=== PATIENT | male | born 1975 | race Caucasian/White ===

== ENCOUNTER 2020-09-15 17:55 | Inpatient (IN) ==
[2020-09-15] MEDS ORDERED: SODIUM CHLORIDE 0.9% 1000ML 1,000 ML IV ONE (18:19)
[2020-09-15] MEDS ORDERED: PANTOPRAZOLE BOLUS/DRIP 1 EA IV STA (18:19)
[2020-09-15] MEDS ORDERED: PANTOprazole 80 MG in DEXTROSE 5% 100 ML IV ONE (18:19)
[2020-09-15 19:17] LABS: Basophils # (auto) 0.02 K/uL (0-0.2); Basophils % (auto) 0.2 %; Eosinophils # (auto) 0.05 K/uL (0-0.5); Eosinophils % (auto) 0.4 %; Hematocrit (blood only) 31.3 % (42-52); Immature Granulocytes # (auto) 0.05 K/uL (0.00-0.02); Immature Granulocytes % (auto) 0.4 %; Lymphocytes # (auto) 1.86 K/uL (1.2-3.4); Lymphocytes % (auto) 15.1 %; Mean Corpuscular Hemoglobin 29.7 pg (25-34); Mean Corpuscular Hgb Conc 35.1 g/dL (32-36); Mean Corpuscular Volume 84.6 fL (80-100); Mean Platelet Volume 9.7 fL (7.4-10.4); Monocytes # (auto) 0.77 K/uL (0.11-0.59); Monocytes % (auto) 6.2 %; Neutrophils # (auto) 9.59 K/uL (1.4-6.5); Neutrophils % (auto) 77.7 %; Platelet Count 268 K/uL (130-400); RDW Coefficient of Variation 13.4 % (11.5-14.5); RDW Standard Deviation 40.4 fL (36.4-46.3); White Blood Count 12.34 K/uL (4.8-10.8)
[2020-09-15] MEDS: PANTOprazole 40 MG in DEXTROSE 5% 100 ML IV SCH (19:24)
[2020-09-15 19:25] LABS: Influenza A virus by PCR Negative (Neg); Influenza B virus by PCR Negative (Neg); RSV by PCR Negative (Neg); SARS CoV2 RNA(COVID-19) InHosp NEGATIVE (Negative)
[2020-09-15 19:27] LABS: INR 1.1 (0.9-1.1); Partial Thromboplastin Ratio 0.8; Partial Thromboplastin Time 21.4 Seconds (21.0-31.0); Prothrombin Time 11.2 Seconds (9.0-12.0)
--- NOTE | 2020-09-15 19:34 | XRay Report ---
XR abdomen 2V w PA chest HISTORY: 45 years-old Male gib acute GI bleed. Acute shortness of breath COMPARISON: Chest radiographs 03/17/2012 TECHNIQUE: AP view of the chest with erect and supine views of the abdomen FINDINGS: Suggested emphysema with chronic interstitial coarsening. Cardiomediastinal and hilar silhouettes are within normal limits. No pneumothorax, pleural effusion or overt pulmonary edema. Surgical clips pro ject over the right lung base. No pneumatosis or pneumoperitoneum. Moderate fecal retention. Nonobstructive bowel gas pattern. No ur olith identified. IMPRESSION: 1. Emphysema with chronic interstitial coarsening. 2. Moderate fecal retention. 3. Nonobstructive bowel gas pattern. ACT 112: Negative or not required by law. The above report was generated using voice recognition software. It may contain grammatical, syntax o r spelling errors. Electronically signed by: Tad Hernandez M.D. 09/15/2020 7:32 PM
[2020-09-15 19:40] LABS: Alanine Aminotransferase 33 U/L (12-78); Albumin Level 3.5 gm/dl (3.4-5.0); BUN Creatinine Ratio 53.2 (10-20); Bilirubin Direct < 0.1 mg/dl (0-0.2); Blood Urea Nitrogen 44 mg/dl (7-18); Calcium 8.2 mg/dl (8.5-10.1); Carbon Dioxide 31 mmol/L (21-32); Chloride 105 mmol/L (98-107); Est GFR (African American) 122.9; Glucose 161 mg/dl (70-99); Lipase 78 U/L (73-393); Potassium 4.1 mmol/L (3.5-5.1); Sodium 140 mmol/L (136-145)
[2020-09-15 19:52] LABS: Alkaline Phosphatase 60 U/L (45-117); Aspartate Aminotransferase 12 U/L (15-37); Bilirubin,Total 0.3 mg/dl (0.2-1); Total Protein 6.2 gm/dl (6.4-8.2)
[2020-09-15] MEDS ORDERED: OPTIRAY 350 500ml IV ONE (20:24)
[2020-09-15] MEDS ORDERED: levoFLOXacin/D5W 750 MG/150 ML BAG IV STA (20:53)
[2020-09-15] MEDS ORDERED: metroNIDAZOLE 500 MG/100 ML BAG IV STA (20:53)
--- NOTE | 2020-09-15 23:48 | Emergency Department Note ---
History of Present Illness General Chief complaint: GI Bleed Stated complaint: GI BLEED, VOMITING Time Seen by Provider: 09/15/20 18:12 History of Present Illness Provider Complaint: + gross hematemesis; no melena, no blood streaked stool and no gross hematochezia Onset (ago): 2 day(s) Maximum Pain Intensity: 3 Context: no history of GI bleed, no alcohol abuse, no known esophageal varices, no foreign travel, no frequent NSAID use and no alcohol ingestion(in addition to abuse) Associated symptoms: + nausea, + vomiting and + epistaxis; no fever, no chills, no headaches, no loss of appetite, no easy bruising and no shortness of breath Home Medications Medication Instructions Recorded Confirmed Type albuterol sulfate 2 puff INHALATION Q4H PRN 09/15/20 09/15/20 History levothyroxine 50 mcg PO DAILYBB 09/15/20 09/15/20 History lisinopril-hydrochlorothiazide 1 tab PO DAILY 09/15/20 09/15/20 History naproxen 500 mg PO BID PRN 09/15/20 09/15/20 History Allergies Allergy/AdvReac Type Severity Reaction Status Date / Time cephalexin Allergy Unknown CAN'T Verified 09/15/20 19:47 REMEMBER Past Med/Surg History Medical History (Updated 09/16/20 @ 00:04 by Home Fuller) Asthma No pertinent family history Surgical History (Updated 09/15/20 @ 23:55 by Home Fuller) H/O tracheostomy Social History Smoking Status: Never smoker current occupational status: employed Feels Safe at Home: Yes Review of Systems A total of 10 systems reviewed and were otherwise negative Physical Exam Vital Signs: Vital Signs - 24 hr 09/15/20 18:00 09/15/20 18:03 09/15/20 18:17 Temperature 36.8 C Temperature Source Oral Pulse Rate 109 H 120 H 111 H Pulse Rate [Right Finger] Pulse Rhythm Regular Pulse Rhythm [Righ t Finger] Pulse Strength [Ri ght Finger] Respiratory Rate 21 22 35 H Respiratory Effort / Characteristics Spontaneous Respiratory Depth Respiratory Patter n Regular Blood Pressure 114/76 114/76 Blood Pressure [Le ft Arm] Blood Pressure Dali n 88 88 Blood Pressure Dali n [Left Arm] Pulse Oximetry 89 L Oxygen Delivery Me thod Room Air Oxygen Flow Rate Sepsis Recent Feve r Within 48 Hours No Sepsis New/Unexpla ined Change in Men puneet Status No Sepsis Action Take n by Nursing No Action Required 09/15/20 18:30 09/15/20 18:31 09/15/20 18:35 Temperature Temperature Source Pulse Rate 120 H 120 H Pulse Rate [Right Finger] Pulse Rhythm Pulse Rhythm [Righ t Finger] Pulse Strength [Ri ght Finger] Respiratory Rate 22 24 Respiratory Effort / Characteristics Respiratory Depth Respiratory Patter n Blood Pressure 131/105 H Blood Pressure [Le ft Arm] Blood Pressure Dali n 113 Blood Pressure Dali n [Left Arm] Pulse Oximetry 93 Oxygen Delivery Me thod Nasal Cannula Oxygen Flow Rate 3 Sepsis Recent Feve r Within 48 Hours Sepsis New/Unexpla ined Change in Men puneet Status Sepsis Action Take n by Nursing 09/15/20 18:45 09/15/20 19:00 09/15/20 19:15 Temperature Temperature Source Pulse Rate 114 H 128 H 125 H Pulse Rate [Right Finger] Pulse Rhythm Pulse Rhythm [Righ t Finger] Pulse Strength [Ri ght Finger] Respiratory Rate 24 21 31 H Respiratory Effort / Characteristics Respiratory Depth Respiratory Patter n Blood Pressure Blood Pressure [Le ft Arm] Blood Pressure Dali n Blood Pressure Dali n [Left Arm] Pulse Oximetry Oxygen Delivery Me thod Oxygen Flow Rate Sepsis Recent Feve r Within 48 Hours Sepsis New/Unexpla ined Change in Men puneet Status Sepsis Action Take n by Nursing 09/15/20 19:30 09/15/20 19:45 09/15/20 20:00 Temperature Temperature Source Pulse Rate 119 H 110 H 114 H Pulse Rate [Right Finger] Pulse Rhythm Pulse Rhythm [Righ t Finger] Pulse Strength [Ri ght Finger] Respiratory Rate 23 23 24 Respiratory Effort / Characteristics Respiratory Depth Respiratory Patter n Blood Pressure Blood Pressure [Le ft Arm] Blood Pressure Dali n Blood Pressure Dali n [Left Arm] Pulse Oximetry Oxygen Delivery Me thod Oxygen Flow Rate Sepsis Recent Feve r Within 48 Hours Sepsis New/Unexpla ined Change in Men puneet Status Sepsis Action Take n by Nursing 09/15/20 20:35 09/15/20 20:45 09/15/20 21:00 Temperature Temperature Source Pulse Rate 117 H 114 H 121 H Pulse Rate [Right Finger] Pulse Rhythm Pulse Rhythm [Righ t Finger] Pulse Strength [Ri ght Finger] Respiratory Rate 27 H 32 H 22 Respiratory Effort / Characteristics Respiratory Depth Respiratory Patter n Blood Pressure Blood Pressure [Le ft Arm] Blood Pressure Dali n Blood Pressure Dali n [Left Arm] Pulse Oximetry Oxygen Delivery Me thod Oxygen Flow Rate Sepsis Recent Feve r Within 48 Hours Sepsis New/Unexpla ined Change in Men puneet Status Sepsis Action Take n by Nursing 09/15/20 21:15 09/15/20 22:26 Temperature Temperature Source Pulse Rate 127 H Pulse Rate [Right Finger] 129 H Pulse Rhythm Pulse Rhythm [Righ t Finger] Regular Pulse Strength [Ri ght Finger] Normal Respiratory Rate 16 24 Respiratory Effort / Characteristics Respiratory Depth Normal Respiratory Patter n Blood Pressure Blood Pressure [Le ft Arm] 105/78 Blood Pressure Dali n Blood Pressure Dali n [Left Arm] 87 Pulse Oximetry 96 Oxygen Delivery Me thod Room Air Oxygen Flow Rate Sepsis Recent Feve r Within 48 Hours Sepsis New/Unexpla ined Change in Men puneet Status Sepsis Action Take n by Nursing Physical Exam: Physical Exam GENERAL: Patient's hands are covered in blood from his vomit. HENT: Exam performed. - Head: Normocephalic and atraumatic. - Right Ear: External ear normal. No mastoid tenderness. - Left Ear: External ear normal. No mastoid tenderness. - Mouth/Throat: The oropharynx is clear and moist. No trismus in the jaw. No dental abscesses or uvula swelling. No oropharyngeal exudate or tonsillar abscesses. EYES: Conjunctivae and EOM are normal. Pupils are equal, round, and reactive to light. Right eye exhibits no discharge. Left eye exhibits no discharge. No scle ral icterus. NECK: Normal range of motion. Neck supple. No JVD present. No spinous process tenderness present. No carotid bruit present. No rigidity. No tracheal deviation and normal range of motion present. No Brudzinski's sign and no Kernig's sign noted. CV: Tachycardic rate, regular rhythm, normal heart sounds and intact distal pulses. There is no peripheral edema. Palpable radial pulses bue. PULM/CHEST: Rhonchi bilaterally ABD: The abdomen is soft. Bowel sounds are normal. He has no distension. No mass is present. There is no tenderness. There is no rebound, no guarding, no Carolina's sign and no tenderness at McBurney's point. Rovsig negative. MUSC/SKEL: Normal range of motion. There is no peripheral edema, tenderness or deformity. LYMPH: No cervical adenopathy. NEURO: He is alert and oriented to person, place, and time. He has normal strength. No cranial nerve deficit or sensory deficit. Coordination and gait normal. GCS eye subscore is 4. GCS verbal subscore is 5. GCS motor subscore is 6. Cerebellar tests wnl. SKIN: Skin is warm and dry. He is not diaphoretic. PSYCH: He has a normal mood and affect. Behavior is normal. Judgment and thought content normal. Course Course 1811: The patient was evaluated in room C8. A complete history and physical exam was performed Cardiac monitoring: An order was placed for continuous cardiac monitoring. The monitor shows a rate of 120 with sinus tachycardia rhythm Patient was found to be hypoxic on room air. Patient was placed on supplemental oxygen via nasal cannula which improved his oxygen saturation. Patient started on Protonix bolus and drip for GI bleed. 2054: Vital signs improved. Patient has had no episodes of vomiting since receiving Zofran. Patient's labs show leukocytosis of 12.34. Imaging does show possible aspiration pneumonia. Given his tachycardia hypoxia and mild leukocytosis we will start the patient on empiric antibiotics for aspiration pneumonia Levaquin and Flagyl. Patient is continued on Protonix drip. Hemoglobin stable at 11 at this point no need for transfusion. [facility] Administered Medications Pantoprazole Sodium 40 mg/ (Dextrose) 100 mls @ 20 mls/hr IV Q5H EFRAÍN Stop: 10/15/20 18:33 Last Admin: 09/15/20 19:24 Dose: 8 mg/hr, 20 mls/hr Documented by: [id number] Discontinued Medications Pantoprazole Sodium 80 mg/ (Dextrose) 120 mls @ 400 mls/hr IV NOW ONE Stop: 09/15/20 18:36 Last Infusion: 09/15/20 19:41 Dose: 0 mls/hr Documented by: [id number] Admin: 09/15/20 19:24 Dose: 400 mls/hr Documented by: [id number] Sodium Chloride (Nss 1000ml) 1,000 mls @ 999 mls/hr IV .Q1H1M ONE Stop: 09/15/20 19:19 Last Infusion: 09/15/20 20:37 Dose: 0 mls/hr Documented by: [id number] Admin: 09/15/20 19:25 Dose: 999 mls/hr Documented by: [id number] Metronidazole (Flagyl) 500 mg in 100 mls @ 100 mls/hr IV NOW STA Stop: 09/15/20 21:52 Last Admin: 09/15/20 22:28 Dose: 100 mls/hr Documented by: [id number] Levofloxacin/Dextrose (Levaquin/D5w) 750 mg in 150 mls @ 100 mls/hr IV NOW STA Stop: 09/15/20 22:22 Last Infusion: 09/15/20 23:22 Dose: 0 mls/hr Documented by: [id number] Admin: 09/15/20 21:19 Dose: 100 mls/hr Documented by: [id number] Ioversol (Optiray 350 500ml) 120 ml IV ONCE ONE Stop: 09/15/20 20:25 Last Admin: 09/15/20 20:24 Dose: 120 ml Documented by: [id number] Medical Decision Making Laboratory Data Result diagrams: 09/15/20 18:56 09/15/20 18:56 Lab Results 09/15/20 09/15/20 09/15/20 Range/Units 18:35 18:35 18:56 WBC (4.8-10.8) K/uL RBC (4.7-6.1) M/uL Hgb (14.0-18.0) g/dL Hct (42-52) % MCV (80-100) fL MCH (25-34) pg MCHC (32-36) g/dL RDW Std Deviation (36.4-46.3) fL RDW Coeff of Yuan (11.5-14.5) % Plt Count (130-400) K/uL MPV (7.4-10.4) fL Immature Gran % (Auto) % Neut % (Auto) % Lymph % (Auto) % [place] % (Auto) % Eos % (Auto) % Baso % (Auto) % Neut # (Auto) (1.4-6.5) K/uL Lymph # (Auto) (1.2-3.4) K/uL [place] # (Auto) (0.11-0.59) K/uL Eos # (Auto) (0-0.5) K/uL Baso # (Auto) (0-0.2) K/uL Immature Gran # (Auto) (0.00-0.02) K/uL PT (9.0-12.0) Seconds INR (0.9-1.1) APTT (21.0-31.0) Seconds PTT Ratio Sodium (136-145) mmol/L Potassium (3.5-5.1) mmol/L Chloride (98-107) mmol/L Carbon Dioxide (21-32) mmol/L Anion Gap (3-11) BUN (7-18) mg/dl Creatinine (0.6-1.4) mg/dl Est Cr Clr Drug Dosing Est GFR ( Amer) Est GFR (Non-Af Amer) BUN/Creatinine Ratio (10-20) Glucose (70-99) mg/dl Calcium (8.5-10.1) mg/dl Magnesium (1.8-2.4) mg/dl Total Bilirubin (0.2-1) mg/dl Direct Bilirubin (0-0.2) mg/dl AST (15-37) U/L ALT (12-78) U/L Alkaline Phosphatase (45-117) U/L Total Protein (6.4-8.2) gm/dl Albumin (3.4-5.0) gm/dl Lipase (73-393) U/L COVID-19 Eval Order [facility]FluRsv at [facility] SARS-CoV-2 (PCR) NEGATIVE (Negative) Influenza Type A (PCR) Negative (Neg) Influenza Type B (PCR) Negative (Neg) RSV (RT-PCR) Negative (Neg) Blood Type O Positive Antibody Screen NEGATIVE 09/15/20 09/15/20 09/15/20 Range/Units 18:56 18:56 18:56 WBC 12.34 H (4.8-10.8) K/uL RBC 3.70 L (4.7-6.1) M/uL Hgb 11.0 L (14.0-18.0) g/dL Hct 31.3 L (42-52) % MCV 84.6 (80-100) fL MCH 29.7 (25-34) pg MCHC 35.1 (32-36) g/dL RDW Std Deviation 40.4 (36.4-46.3) fL RDW Coeff of Yuan 13.4 (11.5-14.5) % Plt Count 268 (130-400) K/uL MPV 9.7 (7.4-10.4) fL Immature Gran % (Auto) 0.4 % Neut % (Auto) 77.7 % Lymph % (Auto) 15.1 % [place] % (Auto) 6.2 % Eos % (Auto) 0.4 % Baso % (Auto) 0.2 % Neut # (Auto) 9.59 H (1.4-6.5) K/uL Lymph # (Auto) 1.86 (1.2-3.4) K/uL [place] # (Auto) 0.77 H (0.11-0.59) K/uL Eos # (Auto) 0.05 (0-0.5) K/uL Baso # (Auto) 0.02 (0-0.2) K/uL Immature Gran # (Auto) 0.05 H (0.00-0.02) K/uL PT 11.2 (9.0-12.0) Seconds INR 1.1 (0.9-1.1) APTT 21.4 (21.0-31.0) Seconds PTT Ratio 0.8 Sodium 140 (136-145) mmol/L Potassium 4.1 (3.5-5.1) mmol/L Chloride 105 (98-107) mmol/L Carbon Dioxide 31 (21-32) mmol/L Anion Gap 4.0 (3-11) BUN 44 H (7-18) mg/dl Creatinine 0.82 (0.6-1.4) mg/dl Est Cr Clr Drug Dosing Not Reportable Est GFR ( Amer) 122.9 Est GFR (Non-Af Amer) 106.0 BUN/Creatinine Ratio 53.2 H (10-20) Glucose 161 H (70-99) mg/dl Calcium 8.2 L (8.5-10.1) mg/dl Magnesium 2.0 (1.8-2.4) mg/dl Total Bilirubin 0.3 (0.2-1) mg/dl Direct Bilirubin < 0.1 (0-0.2) mg/dl AST 12 L (15-37) U/L ALT 33 (12-78) U/L Alkaline Phosphatase 60 (45-117) U/L Total Protein 6.2 L (6.4-8.2) gm/dl Albumin 3.5 (3.4-5.0) gm/dl Lipase 78 (73-393) U/L COVID-19 Eval Order SARS-CoV-2 (PCR) (Negative) Influenza Type A (PCR) (Neg) Influenza Type B (PCR) (Neg) RSV (RT-PCR) (Neg) Blood Type Antibody Screen Imaging Data Radiologist's Impression: Chest/Abdomen X-ray 09/15/20 18:20 XR abdomen 2V w PA chest HISTORY: 45 years-old Male gib acute GI bleed. Acute shortness of breath COMPARISON: Chest radiographs 03/17/2012 TECHNIQUE: AP view of the chest with erect and supine views of the abdomen FINDINGS: Suggested emphysema with chronic interstitial coarsening. Cardiomediastinal and hilar silhouettes are within normal limits. No pneumothorax, pleural effusion or overt pulmonary edema. Surgical clips project over the right lung base. No pneumatosis or pneumoperitoneum. Moderate fecal retention. Nonobstructive bowel gas pattern. No urolith identified. IMPRESSION: 1. Emphysema with chronic interstitial coarsening. 2. Moderate fecal retention. 3. Nonobstructive bowel gas pattern. ACT 112: Negative or not required by law. The above report was generated using voice recognition software. It may contain grammatical, syntax or spelling errors. Electronically signed by: Tad Hernandez M.D. 09/15/2020 7:32 PM Preliminary Findings Only See Final Report For Complete Findings CT ABDOMEN & PELVIS With Contrast: Normal appendix. No obstruction or inflammatory changes along the GI tract. No grossly evident active GI bleed. Hepatic steatosis. The bladder, pancreas, and spleen are unremarkable. No renal or ureteral stones. Radiologist: Nigel Suggs MD Study ready at 20:38 and initial results transmitted at 20:46 Preliminary Findings Only See Final Report For Complete Findings CTA CHEST: No pulmonary embolism. Unremarkable appearance of the aorta. Heart size is normal. Marked emphysematous changes. Multifocal basilar predominant centrilobular nodularity the appearance of which is most suggestive of aspiration. Nonspecific infection considered less likely. Radiologist: Nigel Suggs MD Study ready at 20:39 and initial results transmitted at 20:48 ECG Data Indication: SOB/dyspnea Rate (beats per minute): 115 Rhythm: sinus tachycardia Findings: no RBBB, no ST depression, no ST elevation and no prolonged QT [facility] Narrative 1811: The patient was evaluated in room C8. A complete history and physical exam was performed Cardiac monitoring: An order was placed for continuous cardiac monitoring. The monitor shows a rate of 120 with sinus tachycardia rhythm Patient was found to be hypoxic on room air. Patient was placed on supplemental oxygen via nasal cannula which improved his oxygen saturation. Patient started on Protonix bolus and drip for GI bleed. 2054: Vital signs improved. Patient has had no episodes of vomiting since receiving Zofran. Patient's labs show leukocytosis of 12.34. Imaging does show possible aspiration pneumonia. Given his tachycardia hypoxia and mild tai kocytosis we will start the patient on empiric antibiotics for aspiration pneumonia Levaquin and Flagyl. Patient is continued on Protonix drip. Hemoglobin stable at 11 at this point no need for transfusion. [facility] notified Impression & Plan Hypoxia, Aspiration pneumonia, GIB (gastrointestinal bleeding) Critical Care Time Critical Care Time: Yes Total Critical Care Time: 46 I have personally spent greater than 46 minutes of critical care time in the direct management of this patient. This includes bedside care, interpretation of diagnostic studies, and testing, discussion with consultants, patient, and family members, and other required patient management activities. This 46 minutes is in excess of all separately billable procedures. Discharge Plan Visit Data Chief Complaint: GI Bleed Stated Complaint: GI BLEED, VOMITING ED Provider: Home Fuller Discharge Problem: Hypoxia, Aspiration pneumonia, GIB (gastrointestinal bleeding) Patient Disposition: Admitted As Inpatient Discharge Instructions Interventions: ED Discharge Assessment Last Done: 09/15/20 23:36 Discharge Problem: Aspiration pneumonia Qualifiers: Aspiration pneumonia type: unspecified Laterality: right Lung location: unspecified part of lung Qualified Code(s): J69.0 - Pneumonitis due to inhalation of food and vomit GIB (gastrointestinal bleeding) Qualifiers: GI bleed type/associated pathology: gastrointestinal hemorrhage with hematemesis Qualified Code(s): K92.0 - Hematemesis
[2020-09-16] MEDS ORDERED: ALBUTEROL 0.083% NEBU SOLN 3 ML VIAL NEB PRN (00:10)
[2020-09-16] MEDS ORDERED: CONSULT PHARMACY STA (00:10)
[2020-09-16] MEDS ORDERED: hydrALAZINE HCL 20 MG/ML VIAL IV PRN (00:10)
[2020-09-16] MEDS ORDERED: NITROGLYCERIN SL 0.4 MG/TAB TAB SL PRN (00:10)
[2020-09-16] MEDS ORDERED: ALBUTEROL HFA 8 GM INHALER INH PRN (00:10)
[2020-09-16] MEDS ORDERED: ONDANSETRON INJ 2 MG/ML 2 ML VIAL IV PRN ×3 (00:10→10:30)
[2020-09-16] MEDS ORDERED: HYDROmorphone INJ 0.5 MG/0.5 ML SYR IV PRN (00:10)
[2020-09-16] MEDS: PANTOprazole 40 MG in DEXTROSE 5% 100 ML IV SCH ×6 (00:11→23:42)
[2020-09-16] MEDS: SODIUM CHLORIDE 0.9% 1000ML 1,000 ML IV SCH ×2 (00:24→08:59)
[2020-09-16] MEDS ORDERED: ERTAPENEM CONSULT ACTIVE PRN (00:45)
--- NOTE | 2020-09-16 01:51 | History and Physical Report ---
DATE OF ADMISSION: 09/15/2020 CHIEF COMPLAINT: GI bleed. HISTORY OF PRESENT ILLNESS: This is a 45-year-old male with past medical history significant for hypothyroidism, congenital hypoplastic right lung, hyperlipidemia, history of hypertension, history of posttraumatic stress disorder, anxiety state, history of asthma. The patient presents with acute GI bleed. The patient vomited blood today. He thinks he might have vomited yesterday too but today morning he vomited a couple of times early in the morning back stuff thought it was his coffee. But in the evening, he had a large amount of vomiting of blood, his whole room was filled with blood and he was brought in here. After vomiting blood, he felt short of breath and cough, was 89% on room air when he came in, currently on oxygen and saturating fine, tachycardic. Currently, his hemoglobin is 11, blood pressure is okay. BUN 44, creatinine is okay. He was diagnosed with COVID on August 02, 2020. Today's COVID is negative. No fever, no chills. His chest hurts when taking a deep breath. Currently, no shortness of breath. The patient says he had back pain about a week to 2 weeks ago, he thought from heavy lifting and he started taking Naprosyn 500 mg 1 twice daily, but he states he is not taking it on a regular basis. Denies any aspirin usage. Currently having back pain and some pain in the right lower chest, more with deep breath. No headache, no blurred vision, no earache, no runny nose, has some sore throat, no coughing and vomiting. Denies any blood in stool or black stools. Normal bladder movements. ALLERGIES: No known drug allergies. PAST MEDICAL HISTORY: As mentioned above. PAST SURGICAL HISTORY: Tonsillectomy, adenoidectomy, vasectomy, surgery on femur and knee in 1990. MEDICATIONS: Currently on albuterol 2 puffs inhalation q. 4 hours p.r.n., levothyroxine 50 mcg p.o. daily, lisinopril/hydrochlorothiazide 10/12.5 mg p.o. daily, naproxen 500 mg p.o. b.i.d. FAMILY HISTORY: Significant for father has hypertension. SOCIAL HISTORY: . No smoking, no alcohol, no drug use. REVIEW OF SYSTEMS: As per HPI. Rest of review of systems is negative. PHYSICAL EXAMINATION: GENERAL: The patient is obese, not in acute distress. VITAL SIGNS: Temperature 36.8, pulse 120s, respiratory rate 24, blood pressure 105/78, oxygen 96% on room air. HEENT: Pupils equal, round, reactive to light. Oral mucosa moist. NECK: No JVD. No neck masses. CARDIOVASCULAR: S1, S2 heard. Tachycardia. No murmur, no gallop. RESPIRATORY SYSTEM: Normal AP diameter. No accessory muscle use. No wheezing, no crackles. ABDOMEN: Soft, bowel sounds present, nontender. No distention. CENTRAL NERVOUS SYSTEM: Cranial nerves II through XII grossly intact, nonfocal. EXTREMITIES: No edema, no erythema. LABORATORY DATA: WBC 12.3, hemoglobin 11, hematocrit 31.3, platelets 268. PT 11.2, INR 1.1, APTT 21.4. Sodium 140, potassium 4.1, chloride 105, bicarbonate 31, BUN 44, creatinine 0.8, serum glucose 151, calcium 8.2, magnesium 2, total bilirubin 0.3, direct bilirubin less than 0.1, AST 12, ALT 33, alkaline phosphatase 60, lipase 78. SARS-CoV-2 PCR negative. Influenza A and B PCR negative, RSV PCR negative. IMAGING: CTA of the chest with multifocal bibasilar predominant centrilobular nodularity appearance of which suggest mostly aspiration. Non specific infection considered less likely. No PE. Chest and abdominal x-ray, emphysema, moderate fecal retention. EKG: Sinus tachycardia, rate of 115. Nonspecific ST abnormalities. ASSESSMENT AND PLAN: This is a 45-year-old male who presents with acute GI bleed. 1. Acute GI bleed, hematemesis. Was taking Naprosyn for about a week now. Hemoglobin, we do not have recent labs but it was 14.8 in 2011, currently it is 11, blood consent was obtained. Hemoglobin and hematocrit q. 6 hours, Protonix drip started in the ER, which will be continued. Keep him n.p.o. Consult GI in a.m. Closely monitor in tele floor. If he starts to vomit blood again we will call the GI. 2. Possible aspiration pneumonitis. He was having pain while taking deep breaths. CTA of the chest, no PE. Shortness of breath and cough which started after vomiting blood today. . History of COVID in July and today's COVID is negative. He was empirically started on Levaquin and Flagyl, which will be continued. Closely monitor. Continue oxygenation. 3. History of asthma, currently not in exacerbation. Continue with albuterol p.r.n. 4. History of hypothyroidism, placed on IV Synthroid. 5. History of hypertension. Hold his home medications lisinopril/hydrochlorothiazide, place him on IV hydralazine p.r.n. 6. Deep venous thrombosis prophylaxis, sequential compression devices. DISPOSITION: Admit to tele floor. Expect discharge home and follow with family doctor. LOUISA
[2020-09-16] MEDS ORDERED: ERTAPENEM SODIUM 1,000 MG in SODIUM CHLORIDE 0.9% 50 ML IV SCH (02:00)
[2020-09-16 06:53] LABS: Basophils # (auto) 0.02 K/uL (0-0.2); Basophils % (auto) 0.1 %; Hematocrit (blood only) 28.8 % (42-52); Immature Granulocytes # (auto) 0.04 K/uL (0.00-0.02); Immature Granulocytes % (auto) 0.2 %; Lymphocytes # (auto) 1.57 K/uL (1.2-3.4); Lymphocytes % (auto) 9.2 %; Mean Corpuscular Hemoglobin 29.3 pg (25-34); Mean Corpuscular Hgb Conc 34.7 g/dL (32-36); Mean Corpuscular Volume 84.5 fL (80-100); Mean Platelet Volume 9.8 fL (7.4-10.4); Monocytes # (auto) 1.05 K/uL (0.11-0.59); Monocytes % (auto) 6.2 %; Neutrophils # (auto) 14.31 K/uL (1.4-6.5); Neutrophils % (auto) 84.3 %; Platelet Count 262 K/uL (130-400); RDW Coefficient of Variation 13.9 % (11.5-14.5); RDW Standard Deviation 42.8 fL (36.4-46.3); Red Blood Count 3.41 M/uL (4.7-6.1); White Blood Count 16.99 K/uL (4.8-10.8)
[2020-09-16 07:34] LABS: BUN Creatinine Ratio 32.6 (10-20); Calcium 8.3 mg/dl (8.5-10.1); Creatinine Clr Calc Pharmacy 113.6 ml/min; Est GFR (African American) 120.5; Magnesium 1.9 mg/dl (1.8-2.4); Potassium 3.9 mmol/L (3.5-5.1)
--- NOTE | 2020-09-16 07:49 | CT Scan Report ---
CT ANGIOGRAM OF THE CHEST CLINICAL HISTORY: Gastrointestinal hemorrhage. Hypoxia. Possible pulmonary embolism. COMPARISON STUDY: December 2011 TECHNIQUE: Following the IV administration of 120 mL of Optiray, CT angiogram of the thorax was perfo rmed from the thoracic inlet to the lung bases utilizing the pulmonary embolus protocol. Images are r eviewed in the axial, sagittal, and coronal planes. IV contrast was administered without complication . MIP imaging was performed. A dose lowering technique was utilized adhering to the principles of [place] LUIS. CT DOSE: 1530.04 mGy.cm FINDINGS: There is hepatic steatosis. No pathologically enlarged axillary mediastinal or hilar lymph nodes were visualized. There was no evidence of thoracic aortic dilatation. There were no pulmonary artery filling defects to indicate acute pulmonary embolism. There is pulmonary emphysema. Postsurgical changes are present at the left lung apex. There are areas of acinar nodularity within the right upper lobe and both lower lobes, consistent with a multifocal pneumonia. IMPRESSION: 1. No evidence of acute pulmonary embolism 2. Severe pulmonary emphysema 3. Bilateral pulmonary acinar nodularity consistent with a nonspecific infectious/inflammatory proces s. ACT 112: Negative or not required by law. Electronically signed by: Dany Wilkinson M.D. 09/16/2020 7:47 AM
--- NOTE | 2020-09-16 07:49 | CT Scan Report ---
CT OF THE ABDOMEN AND PELVIS WITH CONTRAST CLINICAL HISTORY: Upper GI bleed. COMPARISON STUDY: Abdominal series September 15, 2020. TECHNIQUE: Following IV administration of 120 mL of Optiray, axial images of the abdomen and pelvis w ere obtained from the lung bases to the proximal femurs. Images were reviewed in the axial, sagittal, and coronal planes. IV contrast was administered without complication. Automated exposure control w as utilized for the study. A dose lowering technique was utilized adhering to the principles of RACQUEL Pearson. FINDINGS: Please note that the chest will be reported separately. Chest CT demonstrates severe emphys shantal with bilateral lower lobe alveolar opacities. No pneumatosis, free air or portal venous gas is pr esent. There is hepatic steatosis. The spleen, adrenal glands, kidneys and pancreas are unremarkable. There is no biliary or pancreatic ductal dilatation. There is no hydronephrosis. No peripancreatic o r pericholecystic infiltration is noted. Major vasculature is patent. There is no lymphadenopathy. Th e caliber and wall thickness of small and large bowel are normal. No extravasation of contrast into t he bowel lumen is identified on this examination. Sensitivity for detection mucosal lesions is dimini shed given CT technique. Fat-containing right inguinal hernia is noted. Bowel containing umbilical he rnia is present. IMPRESSION: 1. No acute process within the abdomen or pelvis. No contrast extravasation into the bowel lumen iden tified. 2. Hepatic steatosis. 3. Bowel containing umbilical hernia. Fat-containing right inguinal hernia. ACT 112: Negative or not required by law. Electronically signed by: Tylor Fraser M.D. 09/16/2020 7:47 AM
[2020-09-16] MEDS: metroNIDAZOLE 500 MG/100 ML BAG IV SCH ×3 (08:53→22:04)
--- NOTE | 2020-09-16 08:58 | Electrocardiogram Report ---
Test Reason : Blood Pressure : / mmHG Vent. Rate : 115 BPM Atrial Rate : 115 BPM P-R Int : 152 ms QRS Dur : 076 ms QT Int : 316 ms P-R-T Axes : 074 005 086 degrees QTc Int : 437 ms Sinus tachycardia Diffuse Minor Nonspecific T wave abnormality Abnormal ECG When compared with ECG of 16-MAR-2012 22:40, Vent. rate has increased BY [address] no longer elevated in Lateral leads Nonspecific T wave abnormality now evident in multiple leads Confirmed by Roque Magallanes ([id number]) on 09/16/2020 8:58:10 AM Referred By: REFERRED SELF Confirmed By:Roque Magallanes
[2020-09-16] MEDS ORDERED: LEVOTHYROXINE SODIUM 25 MCG in SYRINGE 0 ML IV SCH (09:00)
[2020-09-16] MEDS ORDERED: DOXYCYCLINE HYCLATE 100 MG in DEXTROSE 5% 100 ML IV SCH (09:00)
[2020-09-16] MEDS ORDERED: SODIUM CHLORIDE 0.9% 1000ML 1,000 ML IV SCH (09:12)
--- NOTE | 2020-09-16 09:34 | Gastrointestinal Consultation ---
Date of Consultation September 16, 2020 Assessment & Plan (1) Upper GI bleed: Likely NSAID induced UGI bleed. Keep NPO. 1 L NS Bolus then return to 125/hr. Agree with PPI drip. EGD this afternoon in the OR by Dr. Nichole. Further recommendations to follow EGD. Present on Admission?: Yes Supervising Physician Co-Signing Physician Notes Attg add: I interviewed and examined pt, reviewed chart and labs. Pt admit with complaint of coffee ground emesis x2, h/o NSAID use. Bp stable, but tachy. BUN 44, hgb 11. Suspect PUD, plan for EGD today. History of Present Illness Reason for Consultation: GI Beed Requesting Physician: Dr. Baker Attending Physician: Rowena Baker MD History of Present Illness Mr. Andrew Miller is a 45 yr old male pt of Dr. Herndon with a hx of hypothyroidism, congenital hypoplastic right lung, hyperlipidemia, HTN, PTSD, anxiety state, asthma. He has had back pain and has been on prescription naproxen BID for approx a month and prior to that OTC Naproxen use. He presented to the ED yesterday because he was very weak. That morning, he had vomited coffee grounds twice and last evening faby red blood twice. Hb on arrival 11->10 this morning (most recent prior Hb was 14 but was in 2011), BUN 47->28. He denies any abdominal pain. He is awake, alert, oriented and able to provide a detailed history. He is on a PPI drip. He is a bit tachycardic at 110/min but denies any CP, SOB or cough, tested (-) for COVID and has not had any further vomiting since admission. Most recent BM was yesterday afternoon, brown, formed. Allergies Allergy/AdvReac Type Severity Reaction Status Date / Time cephalexin Allergy Unknown CAN'T Verified 09/15/20 19:47 REMEMBER Home Medications Medication Instructions Recorded Confirmed Type albuterol sulfate 2 puff INHALATION Q4H PRN 09/15/20 09/15/20 History levothyroxine 50 mcg PO DAILYBB 09/15/20 09/15/20 History lisinopril-hydrochlorothiazide 1 tab PO DAILY 09/15/20 09/15/20 History naproxen 500 mg PO BID PRN 09/15/20 09/15/20 History Patient History Medical History Asthma No pertinent family history Surgical History H/O tracheostomy Social History Smoking Status: Never smoker Hx Alcohol Use: No Hx Substance Use: No Preferred Language: [place] Communication Ability: Effective 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 Beliefs That Will Affect Care: None Current Living Situation: Family current occupational status: employed Other Information That Helps Us Care for You: No Feels Safe at Home: Yes Safety Concerns: Feels Safe At This Time Assistive Devices: None Review of Systems Review of Systems: ROS: Gen: ++ weakness, No fevers, weight loss Eyes: No eye redness, or pain, no recent vision changes Resp: No SOB, no cough Cardio: No palpitations/irregular beats, no chest pain GI: See HPI, otherwise (-) : Denies pain on urination Skin: No jaundice, itching or new rashes Physical Exam Constitutional: well developed, well nourished, + obese (mild) and healthy appearing; no acute distress Eyes: PERRL, conjunctivae normal, anicteric sclerae (strabismus) ENMT: external ear and nose normal, oropharynx normal Neck: trachea midline, no thyromegaly Respiratory: normal respiratory effort, lungs clear to auscultation (Right lung sounds quiet at the base;no adentitious sounds) Cardiovascular: 100 - 110/min, regular, no murmurs Gastrointestinal (Abdomen): normal bowel sounds, soft, nontender, no hepatosplenomegaly Musculoskeletal: no cyanosis or clubbing, extremities motor strength 5/5 Skin: no rashes, warm and dry Neurologic: PERRL, EOMI, accommodation nl, no face palsy, no dysarthria Psychiatric: A+Ox3, euthymic affect Lymphatic: no cervical or axillary lymphadenopathy Results & Data ([facility]) Vital Signs (Past 12 Hours) Vital Signs Temp Pulse Pulse Resp BP Pulse Ox 09/16/20 05:45 36.9 C 117 H 20 151/88 H 96 09/16/20 00:06 36.8 C 122 H 19 113/75 94 09/15/20 22:26 129 H 24 105/78 96 09/15/20 21:15 127 H 16 Laboratory Results WBC 16, Hb 19, Hct 28, Plats 262, Na 141, K 3.9, Cl 106, CO2 29, BUN 28, Cr 0.86. Diagnostic Findings CTAP: 1. No acute process within the abdomen or pelvis. No contrast extravasation into the bowel lumen identified. 2. Hepatic steatosis. 3. Bowel containing umbilical hernia. Fat-containing right inguinal hernia. CTA Chest: 1. No evidence of acute pulmonary embolism 2. Severe pulmonary emphysema 3. Bilateral pulmonary acinar nodularity consistent with a nonspecific infectious/inflammatory process.
[2020-09-16] MEDS ORDERED: fentaNYL citrate 100 MCG/2 ML VIAL IV PRN ×2 (10:20→10:30)
[2020-09-16] MEDS ORDERED: ePHEDrine sulfate 50 MG/ML AMP IV PRN ×2 (10:20→10:30)
[2020-09-16] MEDS ORDERED: ATROPINE SULFATE 0.1 MG/ML 10ML SYR IV PRN ×2 (10:20→10:30)
[2020-09-16] MEDS ORDERED: SODIUM CHLORIDE 0.9% 1000ML 500 ML IV ONE (10:27)
--- NOTE | 2020-09-16 10:32 | Anesthesiology Consultation ---
Date of Service September 16, 2020 Assessment & Plan (1) Encounter for pre-operative examination: Chart Review Chart Review: Acceptable Risk for Surgery and Patient NOT seen in Pre Admission Testing Consults Requested none ASA ASA3 Proposed Anesthesia Anesthesia Type: General Risk / Benefits Reviewed With: PT / POA / Parent / Guardian, Accepts Plan and Informed Consent Obtained History Surgery Operation Date: 09/16/20 07:00 Proposed Procedures p Esophagogastroduodenoscopy Cj Nichole MD Operation Date: 09/16/20 16:30 Proposed Procedures p Esophagogastroduodenoscopy Dr Marquez - Lakeshia Nichole MD Height/Weight Height: 5 ft 6 in Weight: 91.3 kg Allergies Allergy/AdvReac Type Severity Reaction Status Date / Time cephalexin Allergy Unknown CAN'T Verified 09/15/20 19:47 REMEMBER Medications Home Medications Medication Instructions Recorded Confirmed Last Taken albuterol sulfate 2 puff INHALATION Q4H PRN 09/15/20 09/15/20 Unknown levothyroxine 50 mcg PO DAILYBB 09/15/20 09/15/20 09/15/20 lisinopril-hydrochlorothiazide 1 tab PO DAILY 09/15/20 09/15/20 09/15/20 naproxen 500 mg PO BID PRN 09/15/20 09/15/20 Unknown Active Medications Generic Name Dose Route Start Last Admin Trade Name Freq PRN Reason Stop Dose Admin Pantoprazole Sodium 40 mg/ 100 mls @ 20 mls/hr 09/15/20 18:34 09/16/20 08:54 Dextrose IV 10/15/20 18:33 8 mg/hr Q5H EFRAÍN 20 mls/hr Administration 8 MG/HR Sodium Chloride 1,000 mls @ 125 mls/hr 09/16/20 00:10 09/16/20 08:59 Nss 1000ml IV 10/16/20 00:09 125 mls/hr .Q8H EFRAÍN Administration Levothyroxine Sodium 25 mcg/ 1.25 mls @ 2 mls/min 09/16/20 09:00 09/16/20 0 8:53 Syringe IV 10/16/20 08:59 2 mls/min Q3D@0900 EFRAÍN Administration Protocol Metronidazole 500 mg in 100 mls @ 100 mls/hr 09/16/20 07:00 09/16/20 08:53 Flagyl IV 09/23/20 06:59 100 mls/hr Q8H EFRAÍN Administration NPO Date Last Intake of Fluids: 09/15/20 Time Last Intake of Fluids: 13:00 Last Intake of Fluids Comment: ice chips Date Last Intake of Solids: 09/15/20 Time Last Intake of Solids: 13:00 Past Medical History Medical History Asthma No pertinent family history Exercise / Class Metabolic Activity II 4-5 Yardwork/Stairs/Walk up hill Past Surgical History Surgical History H/O tracheostomy Past Anesthesia History No Hx of Anesthesia Complications and No Family Hx of Anesthesia Complications History of PONV No Hx of PONV and No Hx of Motion Sickness Social History Smoking Status: Never smoker Hx Alcohol Use: No Hx Substance Use: No Physical Exam Vital Signs Last Vital Signs Temp 37 C 09/16/20 09:48 Pulse 114 H 09/16/20 09:48 Resp 20 09/16/20 09:48 BP 118/73 09/16/20 09:48 Pulse Ox 91 09/16/20 09:48 ENMT Mouth: no dentition abnormality Thyromental Distance: > or= 3.5 Finger Breadths Mallampati Class: II Neck normal visual inspection Respiratory normal respiratory effort Auscultation: lungs clear to auscultation bilaterally Cardiovascular Rate/Rhythm: regular rate and regular rhythm Psychiatric Orientation: alert Testing Laboratory Results 09/16/20 05:52 09/16/20 05:52 PT 11.2 Seconds (9.0-12.0) 09/15/20 18:56 INR 1.1 (0.9-1.1) 09/15/20 18:56 APTT 21.4 Seconds (21.0-31.0) 09/15/20 18:56 Blood Type O Positive 09/15/20 18:56 Antibody Screen NEGATIVE 09/15/20 18:56
[2020-09-16] MEDS ORDERED: LIDOCAINE HCL 2% 2 ML VIAL/AMP(20MG/ML) INFIL ONE (11:06)
[2020-09-16] MEDS ORDERED: ONDANSETRON INJ 2 MG/ML 2 ML VIAL ONE (11:06)
[2020-09-16] MEDS ORDERED: fentaNYL citrate 100 MCG/2 ML VIAL ONE (11:06)
[2020-09-16] MEDS ORDERED: PROPOFOL IV EMULSION 10 MG/ML 20 ML VIAL IV ONE (11:06)
[2020-09-16] MEDS ORDERED: DEXAMETHASONE SOD INJ 4 MG/ML VIAL ONE (11:06)
[2020-09-16] MEDS ORDERED: MIDAZOLAM HCL 1 MG/ML 2ML VIAL ONE (11:07)
--- NOTE | 2020-09-16 11:17 | History & Physical Bridge Note ---
Date of Service September 16, 2020 History & Physical Bridge Note I have examined the patient, reviewed the History & Physical and in the interval since the performance of the History & Physical I have noted the following changes of clinical significance: no changes noted
--- NOTE | 2020-09-16 11:54 | Procedure Note ---
Procedure Note Date of Service September 16, 2020 EGD shows esophageal ulcer, likely pill induced, with non bleeding visible vessel. Injected with 2 cc's of 1:100,000 epinephrine and cauterized with 7 azeri gold probe at setting of 20 klein held with moderate pressure for 4 seconds. Hemostasis was adeqate. PPI gtt x 2 days, carafate suspension TID, twice daily hgb, clears today. Repeat EGD if develops recurrent hematemesis or hgb falls by > more than 2. Coding
--- NOTE | 2020-09-16 12:11 | GI REPORT ---
Patient Name: Andrew Miller Procedure Date: 09/16/2020 11:07 AM Date of : 1975 Admit Type: Inpatient Age: 45 Gender: Male Attending MD: Lakeshia Nichole MD Procedure: Upper GI endoscopy Providers: Lakeshia Nichole MD Referring MD: Rowena Baker Indications: Hematemesis Medicines: See the Anesthesia note for documentation of the administered medications Complications: No immediate complications. Estimated Blood Loss: Estimated blood loss: none. Procedure: Pre-Anesthesia Assessment: - ASA Grade Assessment: III - A patient with severe systemic disease. After obtaining informed consent, the endoscope was passed under direct vision. Throughout the procedure, the patient's blood pressure, pulse, and oxygen saturations were monitored continuously. The Endoscope was introduced through the mouth, and advanced to the second part of duodenum. The upper GI endoscopy was accomplished without difficulty. The patient tolerated the procedure well. Findings: There were two erosions > 5 mm at the GE junction. There was a large ulcer in the esophagus at the GE junction, likely pill induced. The ulcer appeared benign, with smooth edges and no mass effect. There was a slightly protuberant non bleeding visible vessel at the ulcer base. The ulcer base was injected with 2 cc's of 1:100,000 epinephrine. The visible vessel was cauterized using a 7 Fr Goldprobe at 20 klein with moderate pressure held for 4 seconds. Hemostasis appeared adequate. The stomach and duodenum was normal. Impression: NSAID related esophageal ulcer with non bleeding visible vessel s/p cautery and injection with adequate hemostasis. Distal esophagitis. Recommendation: - Discharge patient to ICU. Follow Hgb twice daily for 2 days and xfuse for hgb <7. PPI gtt for 48 hours. Carafate suspension TID. Clears today, with plan to advance to full liquids tomorrow if no evidence of recurrent GIB. If pt with recurrent hematemesis or hgb drop > 2, will plan repeat EGD. Steve Ordonez MD 09/16/2020 12:11:23 PM This report has been signed electronically. Note Initiated On: 09/16/2020 11:07 AM Number of Addenda: 0 I attest to the content of the Intraoperative Record and orders documented therein, exceptions below {[id number]}
[2020-09-16] MEDS ORDERED: ALBUTEROL HFA INHALER 8.5 GM ONE (12:28)
[2020-09-16] MEDS ORDERED: ALBUTEROL 0.083% NEBU SOLN 3 ML VIAL NEB STA (13:13)
[2020-09-16] MEDS: SUCRALFATE 1 GM/10 ML UDC PO SCH ×3 (13:37→19:43)
--- NOTE | 2020-09-16 13:54 | Anesthesiology Progress Note ---
Date of Service September 16, 2020 Anesthesia Post Procedure Vital Signs Vital Signs: Temp Pulse Pulse Pulse Pulse Resp BP 09/16/20 13:48 36.7 C 09/16/20 13:45 113 H 19 09/16/20 13:43 111 H 19 126/62 09/16/20 13:30 113 H 23 09/16/20 13:28 96/62 L 09/16/20 13:27 09/16/20 13:20 36.8 C 110 H 20 09/16/20 13:10 111 H 20 09/16/20 13:00 114 H 20 09/16/20 12:50 115 H 19 09/16/20 12:40 116 H 22 09/16/20 12:30 107 H 18 09/16/20 12:20 36.2 C L 116 H 20 09/16/20 09:48 37 C 114 H 20 09/16/20 09:40 114 H 26 H 118/73 09/16/20 09:30 130 H 23 09/16/20 09:23 123 H 19 09/16/20 09:00 116 H 19 09/16/20 08:45 105 H 26 H 09/16/20 08:30 111 H 19 09/16/20 08:15 108 H 26 H 09/16/20 08:00 36.9 C 100 H 114 H 27 H 09/16/20 07:57 100 H 27 H /09/16/20 07:45 116 H 20 09/16/20 07:39 116 H 26 H 107/71 09/16/20 07:30 107 H 27 H 09/16/20 07:15 110 H 27 H 09/16/20 07:00 112 H 27 H 09/16/20 06:45 117 H 24 09/16/20 06:30 115 H 30 H 09/16/20 06:15 122 H 20 09/16/20 06:00 116 H 26 H 09/16/20 05:56 112 H 23 151/88 H 09/16/20 05:45 36.9 C 114 H 117 H 20 09/16/20 05:30 112 H 24 09/16/20 05:15 115 H 23 09/16/20 05:00 116 H 25 H 09/16/20 04:45 124 H 20 09/16/20 04:30 120 H 28 H 09/16/20 04:15 122 H 24 09/16/20 04:00 125 H 26 H 09/16/20 03:45 123 H 29 H 09/16/20 03:30 119 H 31 H 09/16/20 03:22 117 H 22 09/16/20 02:45 123 H 30 H 09/16/20 02:30 122 H 30 H 09/16/20 02:15 123 H 20 09/16/20 02:00 131 H 21 09/16/20 01:45 120 H 18 09/16/20 01:30 120 H 27 H 09/16/20 01:15 119 H 29 H 09/16/20 01:00 115 H 21 09/16/20 00:45 119 H 16 09/16/20 00:30 121 H 20 09/16/20 00:15 125 H 28 H 09/16/20 00:06 36.8 C 122 H 19 09/16/20 00:00 123 H 22 113/75 09/15/20 23:59 124 H 27 H 09/15/20 22:26 129 H 129 H 30 H 105/78 09/15/20 22:25 128 H 23 09/15/20 21:15 127 H 16 09/15/20 21:00 121 H 22 09/15/20 20:45 114 H 32 H 09/15/20 20:35 117 H 27 H 09/15/20 20:00 114 H 24 09/15/20 19:45 110 H 23 09/15/20 19:30 119 H 23 09/15/20 19:15 125 H 31 H 09/15/20 19:00 128 H 21 09/15/20 18:45 114 H 24 09/15/20 18:35 09/15/20 18:31 120 H 24 09/15/20 18:30 120 H 22 131/105 H 09/15/20 18:17 111 H 35 H 09/15/20 18:03 36.8 C 120 H 22 114/76 09/15/20 18:00 109 H 21 114/76 BP Pulse Ox Pulse Ox 09/16/20 13:48 09/16/20 13:45 90 09/16/20 13:43 91 09/16/20 13:30 92 09/16/20 13:28 91 09/16/20 13:27 91 09/16/20 13:20 111/68 93 09/16/20 13:10 108/71 92 09/16/20 13:00 112/73 92 09/16/20 12:50 112/67 95 09/16/20 12:40 123/70 92 09/16/20 12:30 129/75 92 09/16/20 12:20 148/79 H 93 09/16/20 09:48 118/73 91 09/16/20 09:40 09/16/20 09:30 09/16/20 09:23 09/16/20 09:00 09/16/20 08:45 09/16/20 08:30 09/16/20 08:15 09/16/20 08:00 107/71 96 96 09/16/20 07:57 09/16/20 07:45 09/16/20 07:39 09/16/20 07:30 09/16/20 07:15 09/16/20 07:00 09/16/20 06:45 09/16/20 06:30 09/16/20 06:15 95 09/16/20 06:00 95 09/16/20 05:56 95 09/16/20 05:45 151/88 H 96 09/16/20 05:30 09/16/20 05:15 09/16/20 05:00 09/16/20 04:45 09/16/20 04:30 09/16/20 04:15 09/16/20 04:00 09/16/20 03:45 09/16/20 03:30 09/16/20 03:22 09/16/20 02:45 09/16/20 02:30 09/16/20 02:15 09/16/20 02:00 09/16/20 01:45 09/16/20 01:30 09/16/20 01:15 09/16/20 01:00 09/16/20 00:45 09/16/20 00:30 09/16/20 00:15 09/16/20 00:06 113/75 94 09/16/20 00:00 09/15/20 23:59 09/15/20 22:26 105/78 97 09/15/20 22:25 92 09/15/20 21:15 09/15/20 21:00 09/15/20 20:45 09/15/20 20:35 09/15/20 20:00 09/15/20 19:45 09/15/20 19:30 09/15/20 19:15 09/15/20 19:00 09/15/20 18:45 09/15/20 18:35 93 09/15/20 18:31 09/15/20 18:30 09/15/20 18:17 09/15/20 18:03 89 L 09/15/20 18:00 Transfer of Care Handoff Completed per policy Notes Mental Status: alert / awake / arousable Patient Amnestic to Procedure: Yes Nausea / Vomiting: adequately controlled Pain: adequately controlled Airway Patency, RR, SpO2: stable & adequate BP & HR: stable & adequate Hydration State: stable & adequate Anesthetic Complications: no major complications apparent
[2020-09-16 15:15] LABS: Hematocrit (blood only) 24.1 % (42-52); Hemoglobin 8.5 g/dL (14.0-18.0)
[2020-09-16] MEDS ORDERED: levoFLOXacin/D5W 750 MG/150 ML BAG IV SCH (19:00)
[2020-09-16] MEDS ORDERED: traMADol HCL 50 MG TABLET PO STA (22:02)
--- NOTE | 2020-09-16 23:22 | Hospitalist Progress Note ---
Date of Service September 16, 2020 Assessment & Plan (1) Upper GI bleed: Presented with upper GI bleed, secondary to peptic ulcer disease due to NSAIDs use Patient input from gastroenterology status post EGD-showed esophageal ulcer with evidence of stigmata of recent bleeding Epinephrine injection was given, Did not had any episode of GI bleeding no melanotic stools no hematemesis Continued with IV Protonix drip for 48 hours, added for Carafate Clear liquid diet, for now diet can be advanced tomorrow if patient remains hemodynamically stable, no further episode of GI bleed (2) Acute blood loss anemia: Acute blood loss anemia -Due to peptic ulcer disease, acute upper GI bleed: On presentation hemoglobin was 11, noted to dropped to 8.2 EGD shows esophageal ulcer, history of NSAID use/ underwent epinephrine injection/cauterization of vessels Continue to follow H&H, transfuse for hemoglobin less than 7 or evidence of active bleeding or hemodynamic instability CODE STATUS: Full code DVT prophylaxis: SCD and teds patient is encouraged to ambulate Avoid pharmacological anticoagulation for recent GI bleed Disposition expected to be discharged home in next 1 to 2 days is medically stable Admission and Anticipated Discharge Date Admission Date: September 15, 2020 Subjective Patient reports of feeling much better, no nausea vomiting or abdominal pain or discomfort, no hematemesis or melena Started on clear liquid diet, tolerating well No fever or chills, no headache no dyspnea on exertion Review of Systems Review of Systems: All systems reviewed & are unremarkable except as noted in Subjective Physical Exam Physical Exam: Physical exam: General: No acute distress, alert awake oriented x3 HEENT: PERRLA, EOMI, Heart: Regular S1-S2, no carotid bruit, no JVD, no lower extremity edema Lungs: Clear to auscultate, no wheeze or rales Abdomen: Soft nontender, no organomegaly Extremity: No cyanosis, no deformity, normal strength 5 out of 5 with upper and lower Neuro: No focal neurological deficit normal speech, normal visual field, Motor strength : normal both upper and lower extremity, sensation intact Psych: Alert awake oriented x3, normal affect Results & Data Results & Data ([facility]) Vital Signs (Past 12 Hours) Vital Signs Temp Pulse Pulse Resp BP BP Pulse Ox 09/16/20 23:11 36.9 C 109 H 19 150/91 H 93 09/16/20 15:41 104 H 09/16/20 15:30 109 H 19 09/16/20 15:23 105 H 20 118/68 09/16/20 15:15 108 H 19 93 09/16/20 15:00 115 H 23 93 09/16/20 14:45 118 H 23 93 09/16/20 14:43 116 H 19 137/76 93 09/16/20 14:30 124 H 19 94 09/16/20 14:28 122 H 23 157/73 H 94 09/16/20 14:15 119 H 26 H 93 09/16/20 14:13 122 H 17 131/78 94 09/16/20 14:00 116 H 16 91 09/16/20 13:58 118 H 20 110/79 91 09/16/20 13:48 36.7 C 09/16/20 13:45 113 H 19 90 09/16/20 13:43 111 H 19 126/62 91 09/16/20 13:30 113 H 23 92 09/16/20 13:28 96/62 L 91 09/16/20 13:27 91 09/16/20 13:20 36.8 C 110 H 20 111/68 93 09/16/20 13:10 111 H 20 108/71 92 09/16/20 13:00 114 H 20 112/73 92 09/16/20 12:50 115 H 19 112/67 95 09/16/20 12:40 116 H 22 123/70 92 09/16/20 12:30 107 H 18 129/75 92 09/16/20 12:20 36.2 C L 116 H 20 148/79 H 93
[2020-09-16 23:37] LABS: Hematocrit (blood only) 23.8 % (42-52); Hemoglobin 8.4 g/dL (14.0-18.0)
[2020-09-17] MEDS: PANTOprazole 40 MG in DEXTROSE 5% 100 ML IV SCH ×4 (05:21→21:35)
[2020-09-17 06:51] LABS: Hematocrit (blood only) 23.5 % (42-52); Hemoglobin 8.2 g/dL (14.0-18.0); Mean Corpuscular Hemoglobin 29.7 pg (25-34); Mean Corpuscular Hgb Conc 34.9 g/dL (32-36); Mean Corpuscular Volume 85.1 fL (80-100); Mean Platelet Volume 9.4 fL (7.4-10.4); Platelet Count 196 K/uL (130-400); RDW Coefficient of Variation 14.1 % (11.5-14.5); RDW Standard Deviation 43.3 fL (36.4-46.3); Red Blood Count 2.76 M/uL (4.7-6.1); White Blood Count 9.87 K/uL (4.8-10.8)
[2020-09-17] MEDS: SUCRALFATE 1 GM/10 ML UDC PO SCH ×4 (07:14→21:36)
[2020-09-17 09:22] LABS: BUN Creatinine Ratio 15.9 (10-20); Creatinine Clr Calc Pharmacy 113.8 ml/min; Est GFR (African American) 120.5; Potassium 3.7 mmol/L (3.5-5.1)
[2020-09-17] MEDS: metroNIDAZOLE 500 MG/100 ML BAG IV SCH (09:27)
[2020-09-17] MEDS ORDERED: IRON SUCROSE 200 MG in 0.9 % SODIUM CHLORIDE 100 ML IV ONE (12:45)
--- NOTE | 2020-09-17 13:23 | Gastroenterology Progress Note ---
Date of Service September 17, 2020 Assessment & Plan (1) Upper GI bleed: From Esophageal ulceration - clipped, cauterized, no clear evidence of further GI bleeding since EGD yesterday. Continue PPI drip x one more day. Full liquids po. Venofer transfusion (200mg ordered). Will continue to follow. Present on Admission?: Yes Admission and Anticipated Discharge Date Admission Date: September 15, 2020 Supervising Physician Co-Signing Physician Notes Attg add: I interviewed and examined pt, reviewed chart and labs. Pt with hgb 8.5 last night now 8.2. No gorss GIB, feeling well. Cont PPI gtt through tomorrow, then oral BID PPI x 8 weeks. Follow hgb twice daily. Iron infusion, then oral TIW iron and daily folate. Ok for d/c if hgb stable x 2 days. Subjective Patient reports of feeling well. No gross Gi bleeding today. Denies abd pain today. Hb 8.7 yesterday ->8.2 today. On clear liquids po. Review of Systems Review of Systems: ROS: Gen: weakness continues but is improved, No fevers, weight loss Eyes: No eye redness, or pain, no recent vision changes Resp: No SOB, no cough Cardio: No palpitations/irregular beats, no chest pain GI: No abd pain, no nausea/vomiting no BM since prior to admission : Denies pain on urination Skin: No jaundice, itching or new rashes Physical Exam Constitutional: well developed, well nourished, + obese (mild) and healthy appearing; no acute distress Eyes: PERRL, conjunctivae normal, anicteric sclerae (strabismus) ENMT: external ear and nose normal, oropharynx normal Neck: trachea midline, no thyromegaly Respiratory: normal respiratory effort, lungs clear to auscultation (Right lung sounds quiet at the base;no adentitious sounds) Gastrointestinal (Abdomen): normal bowel sounds, soft, nontender, no hepatosplenomegaly Musculoskeletal: no cyanosis or clubbing, extremities motor strength 5/5 Skin: no rashes, warm and dry Neurologic: PERRL, EOMI, accommodation nl, no face palsy, no dysarthria Psychiatric: A+Ox3, euthymic affect Lymphatic: no cervical or axillary lymphadenopathy Results & Data ([facility]) Vital Signs (Past 12 Hours) Vital Signs Temp Pulse Pulse Resp BP Pulse Ox Pulse Ox 09/17/20 11:00 36.7 C 89 16 115/64 95 09/17/20 08:00 95 H 97 09/17/20 07:55 36.8 C 96 H 18 128/70 97 09/17/20 05:39 36.5 C 94 H 18 131/77 94
[2020-09-17] MEDS: FERROUS GLUCONATE 324 MG TAB PO SCH (16:39)
--- NOTE | 2020-09-17 16:41 | Hospitalist Progress Note ---
Date of Service September 17, 2020 Assessment & Plan (1) Upper GI bleed: Presented with upper GI bleed, secondary to peptic ulcer disease due to NSAIDs use Appreciate input from gastroenterology status post EGD-showed esophageal ulcer with evidence of stigmata of recent bleeding Epinephrine injection was given, and clipping of bleeding vessel. No further episode of GI bleeding, one episode of dark tarry stool possibly secondary to old blood On Protonix drip, added Carafate Diet advanced to full liquid tolerating well, Plan to discharge home tomorrow if remains hemodynamically stable (2) Acute blood loss anemia: Acute blood loss anemia -Due to peptic ulcer disease, acute upper GI bleed: On presentation hemoglobin was 11, noted to dropped to 8.2 EGD shows esophageal ulcer, history of NSAID use/ underwent epinephrine injection/cauterization of vessels Patient received IV Venofer, will be discharged with p.o. iron supplement, repeat CBC in 1 week Continue to follow H&H, transfuse for hemoglobin less than 7 or evidence of active bleeding or hemodynamic instability CODE STATUS: Full code DVT prophylaxis: SCD and teds patient is encouraged to ambulate Avoid pharmacological anticoagulation for recent GI bleed Disposition expected to be discharged home tomorrow if remains medically stable Admission and Anticipated Discharge Date Admission Date: September 15, 2020 Subjective No further episode of hematemesis, still feels weak and tired, Had one episode of dark tarry stool, first bowel movement since admission No abdominal pain no nausea, no fever or chills Review of Systems Review of Systems: All systems reviewed & are unremarkable except as noted in Subjective Physical Exam Physical Exam: Physical exam: General: No acute distress, alert awake oriented x3 HEENT: PERRLA, EOMI, Heart: Regular S1-S2, no carotid bruit, no JVD, no lower extremity edema Lungs: Clear to auscultate, no wheeze or rales Abdomen: Soft nontender, no organomegaly Extremity: No cyanosis, no deformity, normal strength 5 out of 5 with upper and lower Neuro: No focal neurological deficit normal speech, normal visual field, Motor strength : normal both upper and lower extremity, sensation intact Psych: Alert awake oriented x3, normal affect Results & Data Results & Data ([facility]) Vital Signs (Past 12 Hours) Vital Signs Temp Pulse Pulse Pulse Resp BP Pulse Ox 09/17/20 16:01 36.8 C 94 H 18 125/74 96 09/17/20 14:56 97 H 09/17/20 11:00 36.7 C 89 16 115/64 95 09/17/20 08:00 95 H 09/17/20 07:55 36.8 C 96 H 18 128/70 97 09/17/20 05:39 36.5 C 94 H 18 131/77 94 Pulse Ox 09/17/20 16:01 09/17/20 14:56 09/17/20 11:00 09/17/20 08:00 97 09/17/20 07:55 09/17/20 05:39
[2020-09-17 18:21] LABS: Hematocrit (blood only) 23.4 % (42-52); Hemoglobin 8.1 g/dL (14.0-18.0)
[2020-09-18] MEDS: traMADol HCL 50 MG TABLET PO PRN (00:19)
[2020-09-18] MEDS: PANTOprazole 40 MG in DEXTROSE 5% 100 ML IV SCH ×5 (02:17→21:48)
[2020-09-18] MEDS ORDERED: IRON SUCROSE 400 MG in SODIUM CHLORIDE 0.9% 250 ML IV ONE ×2 (07:00→11:00)
[2020-09-18] MEDS: LEVOTHYROXINE SODIUM 50 MCG TABLET PO SCH (07:05)
[2020-09-18 07:17] LABS: Hematocrit (blood only) 23.7 % (42-52); Hemoglobin 8.4 g/dL (14.0-18.0)
[2020-09-18 07:53] LABS: BUN Creatinine Ratio 13.8 (10-20); Calcium 8.2 mg/dl (8.5-10.1); Est GFR (African American) 128.2; Est GFR (Non-African American) 110.6; Potassium 3.2 mmol/L (3.5-5.1)
[2020-09-18] MEDS: ASCORBIC ACID 500 MG TAB PO SCH (08:23)
[2020-09-18] MEDS: LISINOPRIL/HCTZ 10/12.5MG TAB PO SCH (08:23)
[2020-09-18] MEDS: SUCRALFATE 1 GM/10 ML UDC PO SCH ×4 (08:23→20:08)
[2020-09-18] MEDS: FERROUS GLUCONATE 324 MG TAB PO SCH ×2 (08:23→17:06)
--- NOTE | 2020-09-18 08:37 | XRay Report ---
XR chest 1V portable CLINICAL HISTORY: aspiration pneumonia COMPARISON STUDY: No previous studies for comparison. FINDINGS: The cardiac and mediastinal contours remain stable. There is no failure. There is no focal pulmonary consolidation. There is radiographic evidence of pulmonary emphysema. There is a stable opa city at the level left cardiophrenic angle, likely representing a summation of fat pad and atelectati c change.[ IMPRESSION: 1. Pulmonary emphysema 2. No acute findings. ACT 112: Negative or not required by law. Electronically signed by: Dany Wilkinson M.D. 09/18/2020 8:35 AM
[2020-09-18] MEDS ORDERED: POTASSIUM CHLORIDE CRTAB 20 MEQ TABCR PO STA (09:51)
[2020-09-18] MEDS: FOLIC ACID 1 MG TAB PO SCH (10:44)
--- NOTE | 2020-09-18 14:50 | Gastroenterology Progress Note ---
Date of Service September 18, 2020 Assessment & Plan (1) Upper GI bleed: From Esophageal ulceration - clipped, cauterized, no clear evidence of further GI bleeding since EGD 2 days ago. Continue PPI gtt while hospitalized. Regular diet. Anticiapte discharge tomorrow am on BID PPI, iron TIW, folic acid. No NSAID Needs OP EGD 2 months. Our office will call him to arrange. Present on Admission?: Yes Admission and Anticipated Discharge Date Admission Date: September 15, 2020 Supervising Physician Co-Signing Physician Notes Attg add: No complaints, feeling well, buster PO. Hgb stable, BUN WNL. Plan d/c tomorrow am with twice daily oral PPI for 8 weeks, folate and iron supplements. Asked pt to minimize NSAID use. Will repeat EGD in 8 weeks. He asked us about activity and diet restrictions - no diet restrictions; given his anemia, recommended gradual return to full physical activity over the next 1-2 weeks. Will sign off, please call with questions. Subjective Hematemesis prior to arrival. EGD on 09/16 with a large GE junction ulcer, injected with epi, clipped, cauterized. Patient reports of feeling well. No gross Gi bleeding today. Denies abd pain today. Hb 8.2 yesterday ->8.4 today. On full liquids po. On PPI drip. Review of Systems Review of Systems: ROS: Gen: weakness continues but is improved, No fevers, weight loss Eyes: No eye redness, or pain, no recent vision changes Resp: No SOB, no cough Cardio: No palpitations/irregular beats, no chest pain GI: No abd pain, no nausea/vomiting no BM since prior to admission : Denies pain on urination Skin: No jaundice, itching or new rashes Physical Exam Constitutional: well developed, well nourished, + obese (mild) and healthy appearing; no acute distress Eyes: PERRL, conjunctivae normal, anicteric sclerae (strabismus) ENMT: external ear and nose normal, oropharynx normal Neck: trachea midline, no thyromegaly Respiratory: normal respiratory effort, lungs clear to auscultation (Right lung sounds quiet at the base;no adentitious sounds) Gastrointestinal (Abdomen): normal bowel sounds, soft, nontender, no hepatosplenomegaly Musculoskeletal: no cyanosis or clubbing, extremities motor strength 5/5 Skin: no rashes, warm and dry Neurologic: PERRL, EOMI, accommodation nl, no face palsy, no dysarthria Psychiatric: A+Ox3, euthymic affect Lymphatic: no cervical or axillary lymphadenopathy Results & Data ([facility]) Vital Signs (Past 12 Hours) Vital Signs Temp Pulse Pulse Resp BP BP Pulse Ox 09/18/20 12:01 36.6 C 75 19 100/61 94 09/18/20 09:00 84 09/18/20 07:40 36.3 C L 77 18 122/70 94 09/18/20 03:39 36.5 C 68 19 118/74 95
--- NOTE | 2020-09-18 18:21 | Hospitalist Progress Note ---
Date of Service September 18, 2020 Assessment & Plan (1) Upper GI bleed: resolved Presented with upper GI bleed, secondary to peptic ulcer disease due to NSAIDs use Appreciate input from gastroenterology status post EGD-showed esophageal ulcer with evidence of stigmata of recent bleeding Epinephrine injection was given, and clipping of bleeding vessel. No further episode of GI bleeding, one episode of dark tarry stool yesterday possibly secondary to old blood H&H been stable , received IV venofer , added PO iron supplement folic acid on discharge cont PPI gtt today , added carafate diet advanced to regular , tolerating well appreciate input from GI Plan to discharge home tomorrow with PO Protonix BID for 8 week repeat EGD in 8 weeks to assess healing of esophageal ulcer pt is counselled for strict avoidance of NSAID's (2) Acute blood loss anemia: Acute blood loss anemia -Due to peptic ulcer disease, acute upper GI bleed: On presentation hemoglobin was 11, noted to dropped to 8.2/ Per current guideline recommendation PRBC transfusion indicated for hemoglobin less than 7 or evidence of active bleeding or hemodynamic instability. Hb has been stable @ 8.4 , with stable vitals EGD shows esophageal ulcer, history of NSAID use/ underwent epinephrine injection/cauterization of vessels Patient received IV Venofer, will repeat dose in am will be discharged with p.o. iron supplement tomorrow , repeat CBC in 1 week CODE STATUS: Full code DVT prophylaxis: SCD and teds patient is encouraged to ambulate Avoid pharmacological anticoagulation for recent GI bleed Disposition expected to be discharged home tomorrow 09/19/20 Admission and Anticipated Discharge Date Admission Date: September 15, 2020 Subjective No further episode of hematemesis, still feels tired no dark or tarry stool , no BM since yesterday does not have any dizzy spell or lightheadedness , no SOB or [place] still does not feel like himself , wants to wait till tomorrow to be discharged Review of Systems Review of Systems: All systems reviewed & are unremarkable except as noted in Subjective Physical Exam Physical Exam: Physical exam: General: No acute distress, alert awake oriented x3 HEENT: PERRLA, EOMI, Heart: Regular S1-S2, no carotid bruit, no JVD, no lower extremity edema Lungs: Clear to auscultate, no wheeze or rales Abdomen: Soft nontender, no organomegaly Extremity: No cyanosis, no deformity, normal strength 5 out of 5 with upper and lower Neuro: No focal neurological deficit normal speech, normal visual field, Motor strength : normal both upper and lower extremity, sensation intact Psych: Alert awake oriented x3, normal affect Results & Data Results & Data ([facility]) Vital Signs (Past 12 Hours) Vital Signs Temp Pulse Pulse Resp BP BP Pulse Ox 09/18/20 15:22 36.8 C 78 20 113/63 99 09/18/20 12:01 36.6 C 75 19 100/61 94 09/18/20 09:00 84 09/18/20 07:40 36.3 C L 77 18 122/70 94
[2020-09-19] MEDS: PANTOprazole 40 MG in DEXTROSE 5% 100 ML IV SCH ×3 (03:22→12:45)
[2020-09-19] MEDS: LEVOTHYROXINE SODIUM 50 MCG TABLET PO SCH (05:40)
[2020-09-19] MEDS: traMADol HCL 50 MG TABLET PO PRN (05:41)
[2020-09-19] MEDS ORDERED: IRON SUCROSE 400 MG in SODIUM CHLORIDE 0.9% 250 ML IV ONE (07:00)
[2020-09-19 07:02] LABS: Hematocrit (blood only) 25.2 % (42-52); Hemoglobin 8.8 g/dL (14.0-18.0); Mean Corpuscular Hemoglobin 29.7 pg (25-34); Mean Corpuscular Hgb Conc 34.9 g/dL (32-36); Mean Corpuscular Volume 85.1 fL (80-100); Mean Platelet Volume 9.4 fL (7.4-10.4); Platelet Count 315 K/uL (130-400); RDW Coefficient of Variation 14.6 % (11.5-14.5); RDW Standard Deviation 44.1 fL (36.4-46.3); Red Blood Count 2.96 M/uL (4.7-6.1); White Blood Count 10.11 K/uL (4.8-10.8)
[2020-09-19 07:30] LABS: BUN Creatinine Ratio 15.3 (10-20); Calcium 8.6 mg/dl (8.5-10.1); Creatinine Clr Calc Pharmacy 132.9 ml/min; Est GFR (African American) 128.2; Est GFR (Non-African American) 110.6; Magnesium 2.1 mg/dl (1.8-2.4); Potassium 3.6 mmol/L (3.5-5.1)
[2020-09-19] MEDS: FOLIC ACID 1 MG TAB PO SCH (07:44)
[2020-09-19] MEDS: ASCORBIC ACID 500 MG TAB PO SCH (07:44)
[2020-09-19] MEDS: LISINOPRIL/HCTZ 10/12.5MG TAB PO SCH (07:44)
[2020-09-19] MEDS: SUCRALFATE 1 GM/10 ML UDC PO SCH ×2 (07:44→12:45)
[2020-09-19] MEDS: FERROUS GLUCONATE 324 MG TAB PO SCH (07:44)
--- NOTE | 2020-09-19 13:41 | Hospitalist Progress Note ---
Date of Service September 19, 2020 Assessment & Plan (1) Upper GI bleed: Acute Upper GI bleeding Secondary to esophageal ulceration S/P clipped, cauterized Peptic ulcer secondary to NSAID use -EGD:NSAID related esophageal ulcer with non bleeding visible vessel s/p cautery and injection with adequate hemostasis. Distal esophagitis. -CT ABD:No acute process within the abdomen or pelvis. No contrast extravasation into the bowel lumen identified. Hepatic steatosis. Bowel containing umbilical hernia. Fat-containing right inguinal hernia. 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 DVT Px: SCDs CODE STATUS: Full code Admission and Anticipated Discharge Date Admission Date: September 15, 2020 Subjective Patient is seen and examined at bedside States feeling tired Otherwise offers no complaints Denies any bloody stools/melena Also denies chest pain, dyspnea, dizziness, nausea, abdominal pain Offers no other complaints Review of Systems Review of Systems: All systems reviewed & are unremarkable except as noted in HPI & below Physical Exam Physical Exam: Physical Exam: Vitals signs as noted above General Appearance:Moderately built and nourished, no apparent distress Head: normocephalic, Atraumatic Eyes: normal inspection, EOMI Neck: supple, Trachea midline Respiratory/Chest: Normal breath sounds, CTA Cardiovascular: S1, S2, No murmur Abdomen/GI:Soft, Non tender, Bowel sounds present Extremities/Musculoskeletal:normal inspection, no edema Neurologic/Psych:AAOX3, grossly no focal neurological deficits Skin: normal color, warm Results & Data Results & Data ([facility]) Vital Signs (Past 12 Hours) Vital Signs Temp Pulse Pulse Resp BP Pulse Ox 09/19/20 11:00 36.7 C 94 H 98 H 99/66 L 98 09/19/20 08:00 101 H 09/19/20 07:48 36.8 C 66 19 107/76 98 09/19/20 03:39 36.8 C 93 H 18 110/67 93 Laboratory Results Short CBC 09/19/20 Range/Units 06:19 WBC 10.11 (4.8-10.8) K/uL Hgb 8.8 L (14.0-18.0) g/dL Hct 25.2 L (42-52) % Plt Count 315 D (130-400) K/uL BMP 09/19/20 06:19 Sodium 136 Potassium 3.6 Chloride 102 Carbon Dioxide 28 BUN 11 Creatinine 0.74 Glucose 111 H Calcium 8.6
--- NOTE | 2020-09-19 14:07 | Discharge Summary ---
Date of Service September 19, 2020 Admission HPI Per Admitting Provider CHIEF COMPLAINT: GI bleed. HISTORY OF PRESENT ILLNESS: This is a 45-year-old male with past medical history significant for hypothyroidism, congenital hypoplastic right lung, hyperlipidemia, history of hypertension, history of posttraumatic stress disorder, anxiety state, history of asthma. The patient presents with acute GI bleed. The patient vomited blood today. He thinks he might have vomited yesterday too but today morning he vomited a couple of times early in the morning back stuff thought it was his coffee. But in the evening, he had a large amount of vomiting of blood, his whole room was filled with blood and he was brought in here. After vomiting blood, he felt short of breath and cough, was 89% on room air when he came in, currently on oxygen and saturating fine, tachycardic. Currently, his hemoglobin is 11, blood pressure is okay. BUN 44, creatinine is okay. He was diagnosed with COVID on August 02, 2020. Today's COVID is negative. No fever, no chills. His chest hurts when taking a deep breath. Currently, no shortness of breath. The patient says he had back pain about a week to 2 weeks ago, he thought from heavy lifting and he started taking Naprosyn 500 mg 1 twice daily, but he states he is not taking it on a regular basis. Denies any aspirin usage. Currently having back pain and some pain in the right lower chest, more with deep breath. No headache, no blurred vision, no earache, no runny nose, has some sore throat, no coughing and vomiting. Denies any blood in stool or black stools. Normal bladder movements. Admission Exam Per Admitting Provider PHYSICAL EXAMINATION: GENERAL: The patient is obese, not in acute distress. VITAL SIGNS: Temperature 36.8, pulse 120s, respiratory rate 24, blood pressure 105/78, oxygen 96% on room air. HEENT: Pupils equal, round, reactive to light. Oral mucosa moist. NECK: No JVD. No neck masses. CARDIOVASCULAR: S1, S2 heard. Tachycardia. No murmur, no gallop. RESPIRATORY SYSTEM: Normal AP diameter. No accessory muscle use. No wheezing, no crackles. ABDOMEN: Soft, bowel sounds present, nontender. No distention. CENTRAL NERVOUS SYSTEM: Cranial nerves II through XII grossly intact, nonfocal. EXTREMITIES: No edema, no erythema. Principal Diagnosis Esophageal ulcer- due to Naproxen Acute GI bleed Acute blood loss anemia Discharge Data Allergies Allergy/AdvReac Type Severity Reaction Status Date / Time cephalexin Allergy Unknown CAN'T Verified 09/15/20 19:47 REMEMBER Consultations 09/15/20 20:52 ED Decision to Admit Stat 09/16/20 08:00 Consult Gastroenterology Routine Procedures Performed Operation Date: 09/16/20 07:00 Actual Procedures p Esophagogastroduodenoscopy(Not Applicable) - Lakeshia Nichole MD Operation Date: 09/16/20 16:30 <No data on this case meets the specified criteria> Ordered Studies 09/15/20 18:48 CT abd pelvis IV con only Stat 09/15/20 18:49 CT angio chest PE protocol Stat -EGD:NSAID related esophageal ulcer with non bleeding visible vessel s/p cautery and injection with adequate hemostasis. Distal esophagitis. -CT ABD:No acute process within the abdomen or pelvis. No contrast extravasation into the bowel lumen identified. Hepatic steatosis. Bowel containing umbilical hernia. Fat-containing right inguinal hernia. -CTA: 1. No evidence of acute pulmonary embolism 2. Severe pulmonary emphysema 3. Bilateral pulmonary acinar nodularity consistent with a nonspecific infectious/inflammatory process. Hospital Course (1) Upper GI bleed: Acute Upper GI bleeding Secondary to esophageal ulceration S/P clipped, cauterized Peptic ulcer secondary to NSAID use -EGD:NSAID related esophageal ulcer with non bleeding visible vessel s/p cautery and injection with adequate hemostasis. Distal esophagitis. -CT ABD:No acute process within the abdomen or pelvis. No contrast extravasation into the bowel lumen identified. Hepatic steatosis. Bowel containing umbilical hernia. Fat-containing right inguinal hernia. 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 DVT Px: SCDs CODE STATUS: Full code Total Time Total Time Spent Total Time Spent (In Minutes): 39 minutes Total Time Includes: Examination of the Patient, Discharge Planning, Medication Reconciliation, Communication With Other Providers and Other Discharge Plan Discharge Items Patient Disposition: Home - Self-Care Reason For Visit: GI BLEED Discharge Diagnosis: Esophageal ulcer- due to Naproxen Acute GI bleed Acute blood loss anemia Activity: Resume your previous activity Exercise/Sports: Gradually increase as tolerated Non-emergency contact: Primary Care Provider and Pipe Covering Molder Call non-emergency contact if: you have any medication questions, your symptoms worsen, your pain is concerning for you and you have a fever Follow-up/Referrals: Marianne López DO [Physician] - (Repeat EGD in 3 months from now. GI office will call to schedule) Tariq Herndon MD [Primary Care Provider] - (Date & Time 09/20/2020 11:20 AM Provider Tariq Herndon MD Department [facility] ) Diet: Regular Diet Texture: Pureed (blended smooth) Addtl Attending Provider Instructions: You are diagnosed with ulcer in your stomach/esophagus secondary to taking the naproxen In future please avoid naproxen and similar drugs group of medications belonging to NSAIDs group - List Of these medications includes but not limited to: Aspirin Diclofenac Ibuprofen, Motrin, Advil Toradol,ketorolac Naproxen, Aleve, Naprosyn You can take Tylenol as needed for pain or fever When buying [id number] pain medications please consult with pharmacy if you are not sure regarding ingredients, as a lot of the pain medications have combination of NSAIDs and Tylenol. Addtl Attorney Lawyer Provider Instructions: You are discharged on Protonix 40 mg twice daily continue take for 8 weeks. Then dose will be reduced to once daily after follow up with your Pipe Covering Molder. Gastroenterology follow-up in 8 weeks for repeat EGD Continue to take iron supplement folic acid vitamin C Lab work: Complete blood count in a week. Pending Studies at Discharge: No Stand-Alone Forms: [employer], Work/School Release (Inpt), Smoking Cessation Medications and DC Order Prescriptions: New ferrous gluconate 324 mg (38 mg iron) Tablet 324 mg PO BIDM Qty: 60 RF: 0 ascorbic acid (vitamin C) [Vitamin C] 500 mg Tablet 500 mg PO QAM Qty: 30 RF: 0 folic acid 1 mg Tablet 1 mg PO QAM Qty: 30 RF: 0 sucralfate 100 mg/mL Suspension 1 g PO QID 30 Days Qty: 1200 RF: 3 pantoprazole [Protonix] 40 mg tablet,delayed release (DR/EC) 40 mg PO BID 56 Days Qty: 112 RF: 0 Continued levothyroxine 50 mcg tablet 50 mcg PO DAILYBB RF: 0 lisinopril-hydrochlorothiazide 10-12.5 mg tablet 1 tab PO DAILY RF: 0 albuterol sulfate 90 mcg/actuation HFA aerosol inhaler 2 puff INHALATION Q4H PRN (Reason: Shortness Of Breath Or Wheezing) RF: 0 Discontinued naproxen 500 mg tablet 500 mg PO BID PRN (Reason: Pain) RF: 0 Discharge Orders: Discharge Order (Routine); Ordered 09/19/20 Ordered By: Jr Price Admission Data Admit Date/Time: 09/15/20 23:11 Attending Provider: Jr Price Admit Provider: Jesus Giraldo Primary Care Provider: Tariq Herndon Other Providers: Marianne López ; Jesus Giraldo Other Interventions: Discharge Summary Assessment (RN) Last Done: 09/19/20 14:27
== END 2020-09-19 15:06 | disposition home or self-care (01) | DRG 380 ==
LOC: ED 17:55 → 1E 23:11 → SUATTDRO 23:11 → 1E 23:36 → 2S 09-16 19:40 → 2N 09-17 10:59
DX: Z93.0 Tracheostomy status; Q33.6 Congenital hypoplasia and dysplasia of lung; K27.4 Chronic or unspecified peptic ulcer, site unspecified, with hemorrhage; J45.909 Unspecified asthma, uncomplicated; E03.9 Hypothyroidism, unspecified; T39.395A Adverse effect of other nonsteroidal anti-inflammatory drugs [NSAID], initial encounter; J69.0 Pneumonitis due to inhalation of food and vomit; E78.5 Hyperlipidemia, unspecified; K22.11 Ulcer of esophagus with bleeding; D62 Acute posthemorrhagic anemia; K92.0 Hematemesis; Z86.16 Personal history of COVID-19

== ENCOUNTER 2021-03-26 15:46 | Inpatient (IN) ==
[2021-03-26] MEDS ORDERED: SODIUM CHLORIDE 0.9% 1000ML 1,000 ML IV ONE ×2 (16:13→17:35)
[2021-03-26 16:55] LABS: Appearance Urine Clear (Clear); Bilirubin Urine Negative (Negative); Blood Urine Negative (Negative); Color Urine Yellow; Glucose Urine UA 3+ (Negative); Ketones Urine Negative (Negative); Leukocyte Esterase Urine Negative (Negative); Nitrite Urine Negative (Negative); Protein Urine Negative (Negative); Specific Gravity Urine 1.025 (1.000-1.030); Urobilinogen Urine Negative (Negative); pH Urine 6.5 (4.5-7.5)
--- NOTE | 2021-03-26 17:31 | Emergency Department Note ---
History of Present Illness General Chief complaint: Hyperglycemia Stated complaint: WEAKNESS, FATIGUE, ABNORMAL LABS Time Seen by Provider: 03/26/21 16:13 History of Present Illness Provider complaint: Hyperglycemia Onset (ago): day(s) 1 Associated symptoms: + weakness 46-year-old male presents emergency department for hyperglycemia. Patient reports no history of diabetes. Patient states he has been having increasing weakness increasing thirst and increased urination. Patient states that he saw his PCP who did blood work on him and his sugar was high so he referred him to the emergency department. Patient states he was recently diagnosed with COVID- 19 and that is why he was following with a with his PCP. Home Medications Medication Instructions Recorded Confirmed Type albuterol sulfate 90 mcg/actuation 2 puff INHALATION Q4H PRN 09/15/20 03/26/21 History aerosol inhaler levothyroxine 50 mcg tablet 50 mcg PO DAILYBB 09/15/20 03/26/21 History lisinopril 10 1 tab PO DAILY 09/15/20 03/26/21 History mg-hydrochlorothiazide 12.5 mg tablet pantoprazole 40 mg tablet,delayed 40 mg PO DAILY 03/26/21 03/26/21 History release Allergies Allergy/AdvReac Type Severity Reaction Status Date / Time cephalexin Allergy Unknown CAN'T Verified 03/26/21 16:29 REMEMBER Past Med/Surg History Medical History ADHD Asthma Bipolar 1 disorder History of gastric ulcer HTN (hypertension) Hypothyroidism No pertinent family history Surgical History History of esophagogastroduodenoscopy (EGD) History of tonsillectomy and adenoidectomy Family History Other Unknown family medical history Social History Smoking Status: Never smoker Hx Alcohol Use: No Hx Substance Use: No Preferred Language: Serbian Communication Ability: Effective 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 Beliefs That Will Affect Care: None Current Living Situation: Family current occupational status: employed Feels Safe at Home: Yes Assistive Devices: None Physical Exam Vital Signs Vital Signs - 24 hr 03/26/21 15:51 03/26/21 16:46 03/26/21 16:50 Temperature 36.5 C Temperature Source Skin Pulse Rate 129 H 122 H 119 H Pulse Rate [Finger] Pulse Rate from SpO2 Sensor 123 H 120 H Pulse Rhythm Regular Pulse Strength Normal Respiratory Rate 20 22 22 Respiratory Effort / Characteristics Non-Labored Spontaneous Respiratory Depth Normal Respiratory Pattern Regular Blood Pressure 166/109 H Blood Pressure [Left Arm] Blood Pressure Mean 128 Blood Pressure Mean [Left Arm] Pulse Oximetry 94 90 92 Oxygen Delivery Method Room Air Sepsis Recent Fever Within 48 Hours No Sepsis New/Unexplained Change in Mental Status N/A Sepsis Action Taken by Nursing No Action Required 03/26/21 17:00 03/26/21 17:10 03/26/21 17:20 Temperature Temperature Source Pulse Rate 116 H 119 H 121 H Pulse Rate [Finger] Pulse Rate from SpO2 Sensor 114 H 119 H 120 H Pulse Rhythm Pulse Strength Respiratory Rate 23 23 21 Respiratory Effort / Characteristics Respiratory Depth Respiratory Pattern Blood Pressure Blood Pressure [Left Arm] Blood Pressure Mean Blood Pressure Mean [Left Arm] Pulse Oximetry 90 90 90 Oxygen Delivery Method Sepsis Recent Fever Within 48 Hours Sepsis New/Unexplained Change in Mental Status Sepsis Action Taken by Nursing 03/26/21 17:30 03/26/21 17:40 03/26/21 17:50 Temperature Temperature Source Pulse Rate 122 H 119 H 116 H Pulse Rate [Finger] Pulse Rate from SpO2 Sensor 122 H 120 H 115 H Pulse Rhythm Pulse Strength Respiratory Rate 22 18 20 Respiratory Effort / Characteristics Respiratory Depth Respiratory Pattern Blood Pressure Blood Pressure [Left Arm] Blood Pressure Mean Blood Pressure Mean [Left Arm] Pulse Oximetry 90 90 90 Oxygen Delivery Method Sepsis Recent Fever Within 48 Hours Sepsis New/Unexplained Change in Mental Status Sepsis Action Taken by Nursing 03/26/21 18:00 03/26/21 20:50 Temperature Temperature Source Pulse Rate 114 H Pulse Rate [Finger] 112 H Pulse Rate from SpO2 Sensor 114 H Pulse Rhythm Pulse Strength Respiratory Rate 18 16 Respiratory Effort / Characteristics Non-Labored Respiratory Depth Normal Respiratory Pattern Blood Pressure 162/103 H Blood Pressure [Left Arm] 135/95 Blood Pressure Mean 122 Blood Pressure Mean [Left Arm] 108 Pulse Oximetry 92 93 Oxygen Delivery Method Room Air Sepsis Recent Fever Within 48 Hours Sepsis New/Unexplained Change in Mental Status Sepsis Action Taken by Nursing Physical Exam GENERAL: He is oriented to person, place, and time. He appears well-developed and well-nourished. He does not appear distressed. HENT: Exam performed. - Head: Normocephalic and atraumatic. - Right Ear: External ear normal. No mastoid tenderness. - Left Ear: External ear normal. No mastoid tenderness. - Mouth/Throat: The oropharynx is clear and moist. No trismus in the jaw. No dental abscesses or uvula swelling. No oropharyngeal exudate or tonsillar abscesses. EYES: Conjunctivae and EOM are normal. Pupils are equal, round, and reactive to light. Right eye exhibits no discharge. Left eye exhibits no discharge. No scleral icterus. NECK: Normal range of motion. Neck supple. No JVD present. No spinous process tenderness present. No carotid bruit present. No rigidity. No tracheal deviation and normal range of motion present. No Brudzinski's sign and no Kernig's sign noted. CV: Tachycardic rate, regular rhythm, normal heart sounds and intact distal pulses. There is no peripheral edema. Palpable radial pulses bue. PULM/CHEST: Effort normal and breath sounds normal. No respiratory distress. No stridor. He has no wheezes. He has no rales. - Chest Wall: He exhibits no tenderness. ABD: The abdomen is soft. Bowel sounds are normal. He has no distension. No mass is present. There is no tenderness. There is no rebound, no guarding, no M urphy's sign and no tenderness at McBurney's point. Rovsig negative. MUSC/SKEL: Normal range of motion. There is no peripheral edema, tenderness or deformity. LYMPH: No cervical adenopathy. NEURO: He is alert and oriented to person, place, and time. He has normal strength. No cranial nerve deficit or sensory deficit. Coordination and gait normal. GCS eye subscore is 4. GCS verbal subscore is 5. GCS motor subscore is 6. Cerebellar tests wnl. SKIN: Skin is warm and dry. He is not diaphoretic. PSYCH: He has a normal mood and affect. Behavior is normal. Judgment and thought content normal. Course Course 1613: The patient was evaluated in room B10. A complete history and physical exam was performed Cardiac monitoring: An order was placed for continuous cardiac monitoring. The monitor shows a rate of 120 with sinus tachycardia rhythm 1750: Patient no anion gap elevation. Blood glucose greater than 900. We will add serum osmolality to calculate osmolar gap. Increased IV fluids ordered for the patient. 1820: Labs show increased osmolar gap. Patient be started on insulin drip 0.1 units/kg/h. Patient will also be started on normal saline with 40 mEq of KCl. [facility]. Administered Medications Sodium Chloride (Nss 1000ml) 1,000 mls @ 125 mls/hr IV .Q8H EFRAÍN Stop: 04/25/21 17:44 Last Admin: 03/26/21 21:12 Dose: 125 mls/hr Documented by: [id number] Insulin Human Regular 250 (units/ Sodium Chloride) 250 mls @ 9.7 mls/hr IV .Q24H EFRAÍN; Protocol Stop: 04/25/21 18:14 Last Titration: 03/26/21 21:09 Dose: 7.2 units/hr, 7.2 mls/hr Documented by: [id number] Cosigned by: [id number] Admin: 03/26/21 18:28 Dose: 9.7 units/hr, 9.7 mls/hr Documented by: [id number] Cosigned by: [id number] Potassium Chloride 40 meq/ (Sodium Chloride) 1,020 mls @ 125 mls/hr IV .Q8H10M EFRAÍN Stop: 04/25/21 18:29 Last Admin: 03/26/21 19:48 Dose: 125 mls/hr Documented by: [id number] Discontinued Medications Sodium Chloride (Nss 1000ml) 1,000 mls @ 999 mls/hr IV .Q1H1M ONE Stop: 03/26/21 17:13 Last Infusion: 03/26/21 17:48 Dose: 0 mls/hr Documented by: [id number] Admin: 03/26/21 16:47 Dose: 999 mls/hr Documented by: [id number] Sodium Chloride (Nss 1000ml) 1,000 mls @ 999 mls/hr IV .Q1H1M ONE Stop: 03/26/21 18:35 Last Infusion: 03/26/21 19:44 Dose: 0 mls/hr Documented by: [id number] Admin: 03/26/21 18:20 Dose: 999 mls/hr Documented by: [id number] Potassium Chloride 40 meq/ (Sodium Chloride) 1,020 mls @ 125 mls/hr IV .Q8H10M EFRAÍN Stop: 04/25/21 18:14 Last Admin: 03/26/21 19:49 Dose: Not Given Documented by: [id number] Miscellaneous (Stat Iv Infusion Titration Per Protocol) 1 ea N/A NOW STA Stop: 03/26/21 19:55 Last Admin: 03/26/21 21:12 Dose: 1 ea Documented by: [id number] Miscellaneous (Stat Iv Infusion Titration Per Protocol) 1 ea N/A NOW STA Stop: 03/26/21 19:55 Last Admin: 03/26/21 19:55 Dose: 1 ea Documented by: [id number] Miscellaneous (Stat Iv Infusion Titration Per Protocol) 1 ea N/A NOW STA Stop: 03/26/21 20:10 Last Admin: 03/26/21 20:00 Dose: 1 ea Documented by: [id number] Critical Care Time Critical Care Time: Yes Total Critical Care Time: 46 I have personally spent greater than 46 minutes of critical care time in the direct management of this patient. This includes bedside care, interpretation of diagnostic studies, and testing, discussion with consultants, patient, and family members, and other required patient management activities. This 46 minutes is in excess of all separately billable procedures. Medical Decision Making Laboratory Data Result diagrams: 03/26/21 17:44 03/26/21 18:55 Lab Results 03/26/21 03/26/21 03/26/21 Range/Units 16:21 16:43 16:43 WBC Cancelled RBC Cancelled Hgb Cancelled Hct Cancelled MCV Cancelled MCH Cancelled MCHC Cancelled RDW Std Deviation Cancelled RDW Coeff of Yuan Cancelled Plt Count Cancelled MPV Cancelled Immature Gran % (Auto) Cancelled Neut % (Auto) Cancelled Lymph % (Auto) Cancelled Hopkins % (Auto) Cancelled Eos % (Auto) Cancelled Baso % (Auto) Cancelled Neut # (Auto) Cancelled Lymph # (Auto) Cancelled Hopkins # (Auto) Cancelled Eos # (Auto) Cancelled Baso # (Auto) Cancelled Immature Gran # (Auto) Cancelled Absolute Nucleated RBC Cancelled Nucleated RBC % (auto) Cancelled Neutrophils % (Manual) Cancelled Band Neutrophils % Cancelled Lymphocytes % (Manual) Cancelled Prolymphocyte % Cancelled Reactive Lymphs % (Man) Cancelled Monocytes % (Manual) Cancelled Eosinophils % (Manual) Cancelled Basophils % (Manual) Cancelled Metamyelocytes % (Man) Cancelled Myelocytes % (Man) Cancelled Promyelocytes % (Man) Cancelled Blast Cells % (Manual) Cancelled Plasma Cell % (Manual) Cancelled Other Cells % Cancelled Nucleated RBC % Cancelled Neutrophils # (Manual) Cancelled Band Neutrophils # Cancelled Total Absolute Neuts Cancelled Lymphocytes # (Manual) Cancelled Prolymphocyte # Cancelled Reactive Lymphs # Cancelled Total Abs Lymphocytes Cancelled Monocytes # (Manual) Cancelled Eosinophils # (Manual) Cancelled Basophils # (Manual) Cancelled Metamyelocytes # (Man) Cancelled Myelocytes # (Manual) Cancelled Promyelocytes # (Man) Cancelled Blast Cells # (Man) Cancelled Plasma Cell # (Manual) Cancelled Other Cells # Cancelled Nucleated RBCs # (Man) Cancelled Hypersegmented Neuts Cancelled Hyposegmented Neuts Cancelled Hypogranular Neuts Cancelled Large Granular Lymphs Cancelled # Lrg Granular Lymphs Cancelled Hairy Cells Cancelled Smudge Cells Cancelled Toxic Granulation Cancelled Toxic Vacuolation Cancelled Dohle Bodies Cancelled David Rods Cancelled Platelet Estimate Cancelled Hypogranular Platelets Cancelled Clumped Platelets Cancelled Giant Platelets Cancelled Platelet Satelliting Cancelled RBC Morphology Cancelled Polychromasia Cancelled Hypochromasia Cancelled Poikilocytosis Cancelled Basophilic Stippling Cancelled Anisocytosis Cancelled Microcytosis Cancelled Macrocytosis Cancelled Spherocytes Cancelled Pappenheimer Bodies Cancelled Sickle Cells Cancelled Target Cells Cancelled Tear Drop Cells Cancelled Ovalocytes Cancelled Stomatocytes Cancelled Casey-Clintwood Bodies Cancelled Echinocytes Cancelled Acanthocytes (Spur) Cancelled Rouleaux Cancelled RBC Agglutinates Cancelled Schistocytes Cancelled RBC Morph Comment Cancelled Sezary Cell Cancelled VBG pH (7.36-7.41) VBG pCO2 (38-50) mmHg VBG pO2 mmHg VBG HCO3 mmol/L VBG O2 Saturation % VBG Base Excess mEq/L Barometric Pressure mm/Hg Sodium 119 L* (136-145) mmol/L Potassium 4.7 (3.5-5.1) mmol/L Chloride 83 L (98-107) mmol/L Carbon Dioxide 26 (21-32) mmol/L Anion Gap 11.0 (3-11) BUN 23 H (7-18) mg/dl Creatinine 1.52 H (0.6-1.4) mg/dl Est Cr Clr Drug Dosing 67.9 ml/min Est GFR ( Amer) 62.3 ml/min Est GFR (Non-Af Amer) 53.8 ml/min BUN/Creatinine Ratio 14.9 (10-20) Glucose 905 H* (70-99) mg/dl POC Glucose > 600 H* (70-99) mg/dl Osmolality (280-300) mOsm/kg Lactate (0.4-2.0) mmol/L Calcium 10.3 H (8.5-10.1) mg/dl Phosphorus (2.5-4.9) mg/dl Magnesium (1.8-2.4) mg/dl Total Bilirubin 0.5 (0.2-1) mg/dl AST 170 H (15-37) U/L ALT 498 H (12-78) U/L Alkaline Phosphatase 265 H (45-117) U/L Total Protein 8.3 H (6.4-8.2) gm/dl Albumin 3.7 (3.4-5.0) gm/dl Globulin 4.6 H (2.5-4.0) gm/dl Albumin/Globulin Ratio 0.8 L (0.9-2) Beta-Hydroxybutyric Acd (0.2-2.81) mg/dl Specimen Hemolysis Urine Color Urine Appearance (Clear) Urine pH (4.5-7.5) Ur Specific [place] (1.000-1.030) Urine Protein (Negative) Urine Glucose (UA) (Negative) Urine Ketones (Negative) Urine Blood (Negative) Urine Nitrite (Negative) Urine Bilirubin (Negative) Urine Urobilinogen (Negative) Ur Leukocyte Esterase (Negative) COVID-19 Eval Order SARS-CoV-2 (PCR) (Negative) 03/26/21 03/26/21 03/26/21 Range/Units 16:43 16:43 17:44 WBC 9.92 RBC 5.50 Hgb 16.5 Hct 46.3 MCV 84.2 MCH 30.0 MCHC 35.6 RDW Std Deviation 41.4 RDW Coeff of Yuan 13.4 Plt Count 224 MPV 11.1 H Immature Gran % (Auto) 0.4 Neut % (Auto) 78.3 Lymph % (Auto) 12.7 Hopkins % (Auto) 7.8 Eos % (Auto) 0.6 Baso % (Auto) 0.2 Neut # (Auto) 7.77 H Lymph # (Auto) 1.26 Hopkins # (Auto) 0.77 H Eos # (Auto) 0.06 Baso # (Auto) 0.02 Immature Gran # (Auto) 0.04 H Absolute Nucleated RBC Nucleated RBC % (auto) Neutrophils % (Manual) Band Neutrophils % Lymphocytes % (Manual) Prolymphocyte % Reactive Lymphs % (Man) Monocytes % (Manual) Eosinophils % (Manual) Basophils % (Manual) Metamyelocytes % (Man) Myelocytes % (Man) Promyelocytes % (Man) Blast Cells % (Manual) Plasma Cell % (Manual) Other Cells % Nucleated RBC % Neutrophils # (Manual) Band Neutrophils # Total Absolute Neuts Lymphocytes # (Manual) Prolymphocyte # Reactive Lymphs # Total Abs Lymphocytes Monocytes # (Manual) Eosinophils # (Manual) Basophils # (Manual) Metamyelocytes # (Man) Myelocytes # (Manual) Promyelocytes # (Man) Blast Cells # (Man) Plasma Cell # (Manual) Other Cells # Nucleated RBCs # (Man) Hypersegmented Neuts Hyposegmented Neuts Hypogranular Neuts Large Granular Lymphs # Lrg Granular Lymphs Hairy Cells Smudge Cells Toxic Granulation Toxic Vacuolation Dohle Bodies David Rods Platelet Estimate Hypogranular Platelets Clumped Platelets Giant Platelets Platelet Satelliting RBC Morphology Polychromasia Hypochromasia Poikilocytosis Basophilic Stippling Anisocytosis Microcytosis Macrocytosis Spherocytes Pappenheimer Bodies Sickle Cells Target Cells Tear Drop Cells Ovalocytes Stomatocytes Casey-Clintwood Bodies Echinocytes Acanthocytes (Spur) Rouleaux RBC Agglutinates Schistocytes RBC Morph Comment Sezary Cell VBG pH (7.36-7.41) VBG pCO2 (38-50) mmHg VBG pO2 mmHg VBG HCO3 mmol/L VBG O2 Saturation % VBG Base Excess mEq/L Barometric Pressure mm/Hg Sodium (136-145) mmol/L Potassium (3.5-5.1) mmol/L Chloride (98-107) mmol/L Carbon Dioxide (21-32) mmol/L Anion Gap (3-11) BUN (7-18) mg/dl Creatinine (0.6-1.4) mg/dl Est Cr Clr Drug Dosing ml/min Est GFR ( Amer) ml/min Est GFR (Non-Af Amer) ml/min BUN/Creatinine Ratio (10-20) Glucose (70-99) mg/dl POC Glucose (70-99) mg/dl Osmolality 320 H (280-300) mOsm/kg Lactate (0.4-2.0) mmol/L Calcium (8.5-10.1) mg/dl Phosphorus (2.5-4.9) mg/dl Magnesium (1.8-2.4) mg/dl Total Bilirubin (0.2-1) mg/dl AST (15-37) U/L ALT (12-78) U/L Alkaline Phosphatase (45-117) U/L Total Protein (6.4-8.2) gm/dl Albumin (3.4-5.0) gm/dl Globulin (2.5-4.0) gm/dl Albumin/Globulin Ratio (0.9-2) Beta-Hydroxybutyric Acd (0.2-2.81) mg/dl Specimen Hemolysis Urine Color Yellow Urine Appearance Clear (Clear) Urine pH 6.5 (4.5-7.5) Ur Specific [place] 1.025 (1.000-1.030) Urine Protein Negative (Negative) Urine Glucose (UA) 3+ H (Negative) Urine Ketones Negative (Negative) Urine Blood Negative (Negative) Urine Nitrite Negative (Negative) Urine Bilirubin Negative (Negative) Urine Urobilinogen Negative (Negative) Ur Leukocyte Esterase Negative (Negative) COVID-19 Eval Order SARS-CoV-2 (PCR) (Negative) 03/26/21 03/26/21 03/26/21 Range/Units 17:44 17:44 17:57 WBC RBC Hgb Hct MCV MCH MCHC RDW Std Deviation RDW Coeff of Yuan Plt Count MPV Immature Gran % (Auto) Neut % (Auto) Lymph % (Auto) Hopkins % (Auto) Eos % (Auto) Baso % (Auto) Neut # (Auto) Lymph # (Auto) Hopkins # (Auto) Eos # (Auto) Baso # (Auto) Immature Gran # (Auto) Absolute Nucleated RBC Nucleated RBC % (auto) Neutrophils % (Manual) Band Neutrophils % Lymphocytes % (Manual) Prolymphocyte % Reactive Lymphs % (Man) Monocytes % (Manual) Eosinophils % (Manual) Basophils % (Manual) Metamyelocytes % (Man) Myelocytes % (Man) Promyelocytes % (Man) Blast Cells % (Manual) Plasma Cell % (Manual) Other Cells % Nucleated RBC % Neutrophils # (Manual) Band Neutrophils # Total Absolute Neuts Lymphocytes # (Manual) Prolymphocyte # Reactive Lymphs # Total Abs Lymphocytes Monocytes # (Manual) Eosinophils # (Manual) Basophils # (Manual) Metamyelocytes # (Man) Myelocytes # (Manual) Promyelocytes # (Man) Blast Cells # (Man) Plasma Cell # (Manual) Other Cells # Nucleated RBCs # (Man) Hypersegmented Neuts Hyposegmented Neuts Hypogranular Neuts Large Granular Lymphs # Lrg Granular Lymphs Hairy Cells Smudge Cells Toxic Granulation Toxic Vacuolation Dohle Bodies David Rods Platelet Estimate Hypogranular Platelets Clumped Platelets Giant Platelets Platelet Satelliting RBC Morphology Polychromasia Hypochromasia Poikilocytosis Basophilic Stippling Anisocytosis Microcytosis Macrocytosis Spherocytes Pappenheimer Bodies Sickle Cells Target Cells Tear Drop Cells Ovalocytes Stomatocytes Casey-Clintwood Bodies Echinocytes Acanthocytes (Spur) Rouleaux RBC Agglutinates Schistocytes RBC Morph Comment Sezary Cell VBG pH (7.36-7.41) VBG pCO2 (38-50) mmHg VBG pO2 mmHg VBG HCO3 mmol/L VBG O2 Saturation % VBG Base Excess mEq/L Barometric Pressure mm/Hg Sodium (136-145) mmol/L Potassium (3.5-5.1) mmol/L Chloride (98-107) mmol/L Carbon Dioxide (21-32) mmol/L Anion Gap (3-11) BUN (7-18) mg/dl Creatinine (0.6-1.4) mg/dl Est Cr Clr Drug Dosing ml/min Est GFR ( Amer) ml/min Est GFR (Non-Af Amer) ml/min BUN/Creatinine Ratio (10-20) Glucose (70-99) mg/dl POC Glucose > 600 H* (70-99) mg/dl Osmolality (280-300) mOsm/kg Lactate (0.4-2.0) mmol/L Calcium (8.5-10.1) mg/dl Phosphorus 4.0 Cancelled (2.5-4.9) mg/dl Magnesium 2.3 Cancelled (1.8-2.4) mg/dl Total Bilirubin (0.2-1) mg/dl AST (15-37) U/L ALT (12-78) U/L Alkaline Phosphatase (45-117) U/L Total Protein (6.4-8.2) gm/dl Albumin (3.4-5.0) gm/dl Globulin (2.5-4.0) gm/dl Albumin/Globulin Ratio (0.9-2) Beta-Hydroxybutyric Acd (0.2-2.81) mg/dl Specimen Hemolysis Urine Color Urine Appearance (Clear) Urine pH (4.5-7.5) Ur Specific [place] (1.000-1.030) Urine Protein (Negative) Urine Glucose (UA) (Negative) Urine Ketones (Negative) Urine Blood (Negative) Urine Nitrite (Negative) Urine Bilirubin (Negative) Urine Urobilinogen (Negative) Ur Leukocyte Esterase (Negative) COVID-19 Eval Order SARS-CoV-2 (PCR) (Negative) 03/26/21 03/26/21 03/26/21 Range/Units 18:55 19:50 19:50 WBC RBC Hgb Hct MCV MCH MCHC RDW Std Deviation RDW Coeff of Yuan Plt Count MPV Immature Gran % (Auto) Neut % (Auto) Lymph % (Auto) Hopkins % (Auto) Eos % (Auto) Baso % (Auto) Neut # (Auto) Lymph # (Auto) Hopkins # (Auto) Eos # (Auto) Baso # (Auto) Immature Gran # (Auto) Absolute Nucleated RBC Nucleated RBC % (auto) Neutrophils % (Manual) Band Neutrophils % Lymphocytes % (Manual) Prolymphocyte % Reactive Lymphs % (Man) Monocytes % (Manual) Eosinophils % (Manual) Basophils % (Manual) Metamyelocytes % (Man) Myelocytes % (Man) Promyelocytes % (Man) Blast Cells % (Manual) Plasma Cell % (Manual) Other Cells % Nucleated RBC % Neutrophils # (Manual) Band Neutrophils # Total Absolute Neuts Lymphocytes # (Manual) Prolymphocyte # Reactive Lymphs # Total Abs Lymphocytes Monocytes # (Manual) Eosinophils # (Manual) Basophils # (Manual) Metamyelocytes # (Man) Myelocytes # (Manual) Promyelocytes # (Man) Blast Cells # (Man) Plasma Cell # (Manual) Other Cells # Nucleated RBCs # (Man) Hypersegmented Neuts Hyposegmented Neuts Hypogranular Neuts Large Granular Lymphs # Lrg Granular Lymphs Hairy Cells Smudge Cells Toxic Granulation Toxic Vacuolation Dohle Bodies David Rods Platelet Estimate Hypogranular Platelets Clumped Platelets Giant Platelets Platelet Satelliting RBC Morphology Polychromasia Hypochromasia Poikilocytosis Basophilic Stippling Anisocytosis Microcytosis Macrocytosis Spherocytes Pappenheimer Bodies Sickle Cells Target Cells Tear Drop Cells Ovalocytes Stomatocytes Casey-Clintwood Bodies Echinocytes Acanthocytes (Spur) Rouleaux RBC Agglutinates Schistocytes RBC Morph Comment Sezary Cell VBG pH (7.36-7.41) VBG pCO2 (38-50) mmHg VBG pO2 mmHg VBG HCO3 mmol/L VBG O2 Saturation % VBG Base Excess mEq/L Barometric Pressure mm/Hg Sodium (136-145) mmol/L Potassium (3.5-5.1) mmol/L Chloride (98-107) mmol/L Carbon Dioxide (21-32) mmol/L Anion Gap (3-11) BUN (7-18) mg/dl Creatinine (0.6-1.4) mg/dl Est Cr Clr Drug Dosing ml/min Est GFR ( Amer) ml/min Est GFR (Non-Af Amer) ml/min BUN/Creatinine Ratio (10-20) Glucose 475 H* (70-99) mg/dl POC Glucose (70-99) mg/dl Osmolality (280-300) mOsm/kg Lactate (0.4-2.0) mmol/L Calcium (8.5-10.1) mg/dl Phosphorus (2.5-4.9) mg/dl Magnesium (1.8-2.4) mg/dl Total Bilirubin (0.2-1) mg/dl AST (15-37) U/L ALT (12-78) U/L Alkaline Phosphatase (45-117) U/L Total Protein (6.4-8.2) gm/dl Albumin (3.4-5.0) gm/dl Globulin (2.5-4.0) gm/dl Albumin/Globulin Ratio (0.9-2) Beta-Hydroxybutyric Acd 1.40 (0.2-2.81) mg/dl Specimen Hemolysis Urine Color Urine Appearance (Clear) Urine pH (4.5-7.5) Ur Specific [place] (1.000-1.030) Urine Protein (Negative) Urine Glucose (UA) (Negative) Urine Ketones (Negative) Urine Blood (Negative) Urine Nitrite (Negative) Urine Bilirubin (Negative) Urine Urobilinogen (Negative) Ur Leukocyte Esterase (Negative) COVID-19 Eval Order Covid19 at [facility] SARS-CoV-2 (PCR) NEGATIVE (Negative) 03/26/21 03/26/21 Range/Units 20:05 20:09 WBC RBC Hgb Hct MCV MCH MCHC RDW Std Deviation RDW Coeff of Yuan Plt Count MPV Immature Gran % (Auto) Neut % (Auto) Lymph % (Auto) Hopkins % (Auto) Eos % (Auto) Baso % (Auto) Neut # (Auto) Lymph # (Auto) Hopkins # (Auto) Eos # (Auto) Baso # (Auto) Immature Gran # (Auto) Absolute Nucleated RBC Nucleated RBC % (auto) Neutrophils % (Manual) Band Neutrophils % Lymphocytes % (Manual) Prolymphocyte % Reactive Lymphs % (Man) Monocytes % (Manual) Eosinophils % (Manual) Basophils % (Manual) Metamyelocytes % (Man) Myelocytes % (Man) Promyelocytes % (Man) Blast Cells % (Manual) Plasma Cell % (Manual) Other Cells % Nucleated RBC % Neutrophils # (Manual) Band Neutrophils # Total Absolute Neuts Lymphocytes # (Manual) Prolymphocyte # Reactive Lymphs # Total Abs Lymphocytes Monocytes # (Manual) Eosinophils # (Manual) Basophils # (Manual) Metamyelocytes # (Man) Myelocytes # (Manual) Promyelocytes # (Man) Blast Cells # (Man) Plasma Cell # (Manual) Other Cells # Nucleated RBCs # (Man) Hypersegmented Neuts Hyposegmented Neuts Hypogranular Neuts Large Granular Lymphs # Lrg Granular Lymphs Hairy Cells Smudge Cells Toxic Granulation Toxic Vacuolation Dohle Bodies David Rods Platelet Estimate Hypogranular Platelets Clumped Platelets Giant Platelets Platelet Satelliting RBC Morphology Polychromasia Hypochromasia Poikilocytosis Basophilic Stippling Anisocytosis Microcytosis Macrocytosis Spherocytes Pappenheimer Bodies Sickle Cells Target Cells Tear Drop Cells Ovalocytes Stomatocytes Casey-Clintwood Bodies Echinocytes Acanthocytes (Spur) Rouleaux RBC Agglutinates Schistocytes RBC Morph Comment Sezary Cell VBG pH 7.47 H (7.36-7.41) VBG pCO2 45 (38-50) mmHg VBG pO2 60 mmHg VBG HCO3 33 mmol/L VBG O2 Saturation 92.1 % VBG Base Excess 7.6 mEq/L Barometric Pressure 737.0 mm/Hg Sodium (136-145) mmol/L Potassium (3.5-5.1) mmol/L Chloride (98-107) mmol/L Carbon Dioxide (21-32) mmol/L Anion Gap (3-11) BUN (7-18) mg/dl Creatinine (0.6-1.4) mg/dl Est Cr Clr Drug Dosing ml/min Est GFR ( Amer) ml/min Est GFR (Non-Af Amer) ml/min BUN/Creatinine Ratio (10-20) Glucose (70-99) mg/dl POC Glucose (70-99) mg/dl Osmolality (280-300) mOsm/kg Lactate 2.1 H* (0.4-2.0) mmol/L Calcium (8.5-10.1) mg/dl Phosphorus (2.5-4.9) mg/dl Magnesium (1.8-2.4) mg/dl Total Bilirubin (0.2-1) mg/dl AST (15-37) U/L ALT (12-78) U/L Alkaline Phosphatase (45-117) U/L Total Protein (6.4-8.2) gm/dl Albumin (3.4-5.0) gm/dl Globulin (2.5-4.0) gm/dl Albumin/Globulin Ratio (0.9-2) Beta-Hydroxybutyric Acd (0.2-2.81) mg/dl Specimen Hemolysis Urine Color Urine Appearance (Clear) Urine pH (4.5-7.5) Ur Specific [place] (1.000-1.030) Urine Protein (Negative) Urine Glucose (UA) (Negative) Urine Ketones (Negative) Urine Blood (Negative) Urine Nitrite (Negative) Urine Bilirubin (Negative) Urine Urobilinogen (Negative) Ur Leukocyte Esterase (Negative) COVID-19 Eval Order SARS-CoV-2 (PCR) (Negative) Imaging Data Radiologist's Impression: Chest X-Ray 03/26/21 19:15 XR chest 1V portable CLINICAL HISTORY: Cough. Evaluate for pneumonia. COMPARISON STUDY: Chest radiograph September 18, 2020. FINDINGS: Lung volumes are normal. Emphysema is noted. Lungs are clear. There is no pneumothorax or pleural effusion. Cardiac size is normal. Mediastinal contours are normal. There is no evidence for pulmonary edema. IMPRESSION: No acute cardiopulmonary findings. Emphysema. ACT 112: Negative or not required by law. Electronically signed by: Tylor Fraser M.D. 03/26/2021 7:32 PM ECG Data Indication: + weakness Rate (beats per minute): 120 Rhythm: + sinus tachycardia ECG Intervals/blocks: + Normal VA and + Normal QT-c ECG ST segments: + Normal ST segments Additional Comments: QRS 78 MDM Narrative 1613: The patient was evaluated in room B10. A complete history and physical exam was performed Cardiac monitoring: An order was placed for continuous cardiac monitoring. The monitor shows a rate of 120 with sinus tachycardia rhythm 1750: Patient no anion gap elevation. Blood glucose greater than 900. We will add serum osmolality to calculate osmolar gap. Increased IV fluids ordered for the patient. 1820: Labs show increased osmolar gap. Patient be started on insulin drip 0.1 units/kg/h. Patient will also be started on normal saline with 40 mEq of KCl. [facility] Impression & Plan Hyperosmolar hyperglycemic state (HHS) Discharge Plan Visit Data Chief Complaint: Hyperglycemia Stated Complaint: WEAKNESS, FATIGUE, ABNORMAL LABS ED Provider: Home Fuller Discharge Problem: Hyperosmolar hyperglycemic state (HHS) Patient Disposition: Admitted As Inpatient Forms Stand Alone Forms: Counts Include [facility] Prescriptions Prescriptions: No Action levothyroxine 50 mcg tablet 50 mcg PO DAILYBB RF: 0 lisinopril-hydrochlorothiazide 10-12.5 mg tablet 1 tab PO DAILY RF: 0 albuterol sulfate 90 mcg/actuation HFA aerosol inhaler 2 puff INHALATION Q4H PRN (Reason: Shortness Of Breath Or Wheezing) RF: 0 pantoprazole 40 mg tablet,delayed release (DR/EC) 40 mg PO DAILY RF: 0 Referrals Referrals: Tariq Herndon MD [Primary Care Provider] -
[2021-03-26 17:33] LABS: Albumin Globulin Ratio 0.8 (0.9-2); Albumin Level 3.7 gm/dl (3.4-5.0); BUN Creatinine Ratio 14.9 (10-20); Bilirubin,Total 0.5 mg/dl (0.2-1); Calcium 10.3 mg/dl (8.5-10.1); Creatinine Clr Calc Pharmacy 67.9 ml/min; Est GFR (African American) 62.3 ml/min; Est GFR (Non-African American) 53.8 ml/min; Globulin 4.6 gm/dl (2.5-4.0); Potassium 4.7 mmol/L (3.5-5.1); Total Protein 8.3 gm/dl (6.4-8.2)
[2021-03-26] MEDS ORDERED: SODIUM CHLORIDE 0.9% 1000ML 1,000 ML IV SCH (17:45)
[2021-03-26 18:05] LABS: Basophils # (auto) 0.02 K/uL (0-0.2); Basophils % (auto) 0.2 %; Eosinophils # (auto) 0.06 K/uL (0-0.5); Eosinophils % (auto) 0.6 %; Hematocrit (blood only) 46.3 % (42-52); Hemoglobin 16.5 g/dL (14.0-18.0); Immature Granulocytes # (auto) 0.04 K/uL (0.00-0.02); Immature Granulocytes % (auto) 0.4 %; Lymphocytes # (auto) 1.26 K/uL (1.2-3.4); Lymphocytes % (auto) 12.7 %; Mean Corpuscular Hgb Conc 35.6 g/dL (32-36); Mean Corpuscular Volume 84.2 fL (80-100); Mean Platelet Volume 11.1 fL (7.4-10.4); Monocytes # (auto) 0.77 K/uL (0.11-0.59); Monocytes % (auto) 7.8 %; Neutrophils # (auto) 7.77 K/uL (1.4-6.5); Neutrophils % (auto) 78.3 %; Platelet Count 224 K/uL (130-400); RDW Coefficient of Variation 13.4 % (11.5-14.5); RDW Standard Deviation 41.4 fL (36.4-46.3); White Blood Count 9.92 K/uL (4.8-10.8)
[2021-03-26] MEDS ORDERED: GLUCOSE 10 TABS/TUBE PO PRN (18:07)
[2021-03-26] MEDS ORDERED: DEXTROSE 50% 50 ML SYRINGE IV PRN (18:07)
[2021-03-26] MEDS ORDERED: CARBOHYDRATES FOR HYPOGLYCEMIA PO PRN (18:07)
[2021-03-26] MEDS ORDERED: GLUCOSE 40% GEL 15 GM TUBE PO PRN (18:07)
[2021-03-26] MEDS ORDERED: STAT IV Infusion **Titration per Protocol STA ×5 (18:07→20:09)
[2021-03-26] MEDS ORDERED: GLUCAGON FOR INJ 1 MG VIAL SQ PRN (18:07)
[2021-03-26] MEDS ORDERED: HHS GOAL RANGE 250-350 mg/dl ONE (18:10)
[2021-03-26] MEDS ORDERED: POTASSIUM CHLORIDE 40 MEQ in SODIUM CHLORIDE 0.9% 1000ML 1,000 ML IV SCH ×2 (18:15→18:30)
[2021-03-26] MEDS: INSULIN REGULAR 250 UNITS in SODIUM CHLORIDE 0.9% 247.5 ML IV SCH (18:28)
[2021-03-26 18:31] LABS: Magnesium 2.3 mg/dl (1.8-2.4)
--- NOTE | 2021-03-26 19:33 | XRay Report ---
XR chest 1V portable CLINICAL HISTORY: Cough. Evaluate for pneumonia. COMPARISON STUDY: Chest radiograph September 18, 2020. FINDINGS: Lung volumes are normal. Emphysema is noted. Lungs are clear. There is no pneumothorax or p leural effusion. Cardiac size is normal. Mediastinal contours are normal. There is no evidence for pu lmonary edema. IMPRESSION: No acute cardiopulmonary findings. Emphysema. ACT 112: Negative or not required by law. Electronically signed by: Tylor Fraser M.D. 03/26/2021 7:32 PM
--- NOTE | 2021-03-26 19:42 | History & Physical Report ---
Date of Service March 26, 2021 Assessment & Plan (1) Hyperglycemia: (2) Hyperosmolar hyperglycemic state (HHS): Plan: Patient is 46 y/o M with PMH HTN, hypothyroidism, h/o gastric ulcer, polyp disorder, ADHD presented to ER for abnormal outpatient labs - glucose in 600's, fatigue and increased thirst. No known DM. 03/23/2021 patient received his second COVID-19 vaccine. Denies fever, cough, SOB, CP, dysuria, diarrhea. In ER patient afebrile, P: 129, BP 166/109, 94% on room air. No leukocytosis. Corrected sodium of 132, K: 4.7. Glucose: 95, A, creatinine 1.5, UA: 3+ glucose, negative ketones. Chest x-ray no acute infiltrate In ER given 2 L NSS, insulin drip started Obtain beta hydroxybutyric acid and VBG now Obtain lactate Continue NSS + K Continue insulin drip Pharmacy glycemic consult Serial BMP, phosphorus and magnesium labs to monitor electrolytes VBG in am (3) Elevated LFTs: Plan: T bili: 0.5, AST: 170, ALT: 498, alk phos: 265. LFTs WNL in 09/2020 CMP in a.m (4) JENA (acute kidney injury): Plan: Creatinine: 1.5. Baseline 1.0 Monitor renal function, avoid nephrotoxic agents when possible (5) HTN (hypertension): Plan: Hold home lisinopril/HCTZ Monitor BP. may need to add additional agent (6) Hypothyroidism: Plan: Continue levothyroxine (7) History of gastric ulcer: Plan: H/O gastric ulcer in 09/2020 secondary to NSAID use Continue PPI DVT Prophylaxis -SCDs Full Code as per discussion with pt Follows with Dr Daniels for routine care Pt was seen and care coordinated with Dr Lee. See addendum History of Present Illness Chief Complaint: Abnormal labs - hyperglycemia Primary Care Provider: Tariq Herndon MD Patient is 46 y/o M with PMH HTN, hypothyroidism, h/o gastric ulcer, polyp disorder, ADHD presented to ER for abnormal labs-hyperglycemia. Patient reports past several days has had increased fatigue, increased thirst. He reports that he "always feels tired" when attributed to working 6 days a week. He also r eports that he drinks a lot of soda, juices at baseline. 03/23/2021 patient received his second COVID-19 vaccine. He attributed the increased fatigue to vaccine side effects. Had myalgias day after vaccine but states those have improved. Had JUARES yesterday which has since resolved. Patient had COVID-19 infection 07/2020. Past several days patient has been drinking large amount of fluids including soda, juice, Gatorade, coffee, water. Patient states he is urinating frequently but attributed to drinking more fluids. Denies any known history of diabetes. Patient seen PCPs office today and labs were ordered showing glucose in the 600s and was referred to ER. Denies fever/chills, diaphoresis, N/V/D/C, JUARES, dizziness, syncope, vision changes, neck pain, CP, SOB, orthopnea, palpitations, cough, sore throat, choking, otalgia, rhinorrhea, abdominal pain, paresthesias, extremity weakness, extremity edema, rashes, dysuria, hematuria. In ER patient afebrile, P: 129, BP 166/109, 94% on room air. No leukocytosis. Corrected sodium of 132, K: 4.7. Glucose: 95, A, creatinine 1.5, UA: 3+ glucose, negative ketones. Chest x-ray no acute infiltrate In ER given 2 L NSS, insulin drip started Allergies Allergy/AdvReac Type Severity Reaction Status Date / Time cephalexin Allergy Unknown CAN'T Verified 03/26/21 16:29 REMEMBER Home Medications Medication Instructions Recorded Confirmed Type albuterol sulfate 90 mcg/actuation 2 puff INHALATION Q4H PRN 09/15/20 03/26/21 History aerosol inhaler levothyroxine 50 mcg tablet 50 mcg PO DAILYBB 09/15/20 03/26/21 History lisinopril 10 1 tab PO DAILY 09/15/20 03/26/21 History mg-hydrochlorothiazide 12.5 mg tablet pantoprazole 40 mg tablet,delayed 40 mg PO DAILY 03/26/21 03/26/21 History release blood sugar diagnostic (Zao.comTouch #100 ea 03/28/21 Rx Verio test strips) insulin glargine 100 unit/mL (3 50 unit SUBCUT DAILY #15 ml 03/28/21 Rx mL) subcutaneous pen (Lantus Solostar U-100 Insulin) lancets 33 gauge (OneTouch Delica #100 ea 03/28/21 Rx Lancets) metformin 500 mg tablet,extended 500 mg PO QDD #30 tab 03/28/21 Rx release 24 hr pen needle, diabetic 32 gauge x #50 ea 03/28/21 Rx 5/32" (Pen Needle) Past Med/Surg History Medical History (Updated 03/28/21 @ 11:04 by Rand Lee, DO) ADHD Asthma Bipolar 1 disorder DMII (diabetes mellitus, type 2) History of gastric ulcer HTN (hypertension) Hypothyroidism No pertinent family history Surgical History History of esophagogastroduodenoscopy (EGD) History of tonsillectomy and adenoidectomy Family History Other Unknown family medical history Social History Smoking Status: Never smoker Hx Alcohol Use: Yes Hx Substance Use: Yes Preferred Language: Tamazight Communication Ability: Effective Clinical Project Manager Required: No Beliefs That Will Affect Care: None Current Living Situation: Family Current Living Situation Comment: lives with father current occupational status: employed How many Children do You have: 2 Feels Safe at Home: Yes Safety Concerns: Feels Safe At This Time Assistive Devices: None Review of Systems Review of Systems: All systems reviewed & are unremarkable except as noted in HPI & below Physical Exam Physical Exam: General: no distress, obese Head: normocephalic, atraumatic Eyes: PERRL, EOM's intact, conjunctiva non-injected, anicteric ENT: normal inspection external ears, nose, mucous membranes dry Neck: supple, trachea midline Lungs: clear, no respiratory distress, no wheezing/rhonchi/rales CV: tachycardia, rate 118, no murmur, no pretibial edema Abd: normal BS, soft, non-tender Ext: no cyanosis, no calf tenderness Neuro: A&O x 3, answers some questions with delayed response, no focal deficits noted, normal affect Skin: warm, dry Results & Data Results & Data ([facility]) Vital Signs (Past 12 Hours) Vital Signs Temp Pulse Resp BP Pulse Ox 03/26/21 18:00 114 H 18 162/103 H 92 03/26/21 17:50 116 H 20 90 03/26/21 17:40 119 H 18 90 03/26/21 17:30 122 H 22 90 03/26/21 17:20 121 H 21 90 03/26/21 17:10 119 H 23 90 03/26/21 17:00 116 H 23 90 03/26/21 16:50 119 H 22 92 03/26/21 16:46 122 H 22 90 03/26/21 15:51 36.5 C 129 H 20 166/109 H 94 Laboratory Results Short CBC 03/26/21 03/26/21 03/26/21 Range/Units 16:43 16:43 17:44 WBC Cancelled 9.92 Hgb Cancelled 16.5 Hct Cancelled 46.3 Plt Count Cancelled 224 AST 170 H (15-37) U/L ALT 498 H (12-78) U/L BMP 03/26/21 16:43 Sodium 119 L* Potassium 4.7 Chloride 83 L Carbon Dioxide 26 BUN 23 H Creatinine 1.52 H Glucose 905 H* Calcium 10.3 H Liver Function 03/26/21 Range/Units 16:43 Total Bilirubin 0.5 (0.2-1) mg/dl AST 170 H (15-37) U/L ALT 498 H (12-78) U/L Alkaline Phosphatase 265 H (45-117) U/L Albumin 3.7 (3.4-5.0) gm/dl Urine 03/26/21 Range/Units 16:43 Urine Color Yellow Urine Appearance Clear (Clear) Urine pH 6.5 (4.5-7.5) Ur Specific [place] 1.025 (1.000-1.030) Urine Protein Negative (Negative) Urine Glucose (UA) 3+ H (Negative) Diagnostic Findings Chest X-Ray 03/26/21 19:15 XR chest 1V portable CLINICAL HISTORY: Cough. Evaluate for pneumonia. COMPARISON STUDY: Chest radiograph September 18, 2020. FINDINGS: Lung volumes are normal. Emphysema is noted. Lungs are clear. There is no pneumothorax or pleural effusion. Cardiac size is normal. Mediastinal contours are normal. There is no evidence for pulmonary edema. IMPRESSION: No acute cardiopulmonary findings. Emphysema. ACT 112: Negative or not required by law. Electronically signed by: Tylor Fraser M.D. 03/26/2021 7:32 PM Code Status & VTE Plan VTE Prophylaxis Plan VTE Prophylaxis will be ordered: Yes Supervising Physician Co-Signing Physician Notes I have seen and examined the patient and have discussed the case with the provider above. I agree with the assessment and plan as stated. 46-year-old man with hyperosmolar hyperglycemic nonketotic acidosis presented with new onset diabetes and glucose check greater than 900. Reports ongoing increased urination and thirst as well as significant fatigue. A1c pending. On physical exam he is obese, and in no acute distress. Physical exam reveals clear lungs to auscultation with no acute respiratory distress, heart exam with S1, S2 heard and no murmurs, gallops or rubs. Abdomen is soft nontender and nondistended but protuberant. He is euvolemic on exam with no gross neurologic deficits and ambulating independently. Agree with plan as above including insulin drip overnight. Continue to keep him n.p.o. until his sugar comes in tomorrow for no rmal range. Patient understands he will be in the hospital for the next couple of days. No underlying infection noted. Consult diabetic nurse educator. DO Jesus
[2021-03-26 20:25] LABS: Base Excess VBG 7.6 mEq/L; Oxygen Saturation VBG 92.1 %; pH VBG 7.47 (7.36-7.41)
[2021-03-26 20:51] LABS: Beta-Hydroxybutyrate 1.4 mg/dl (0.2-2.81)
[2021-03-26] MEDS ORDERED: INSULIN ASPART 100 UNITS/ML 3 ML PEN SC SCH (21:00)
[2021-03-26 22:19] LABS: BUN Creatinine Ratio 16.1 (10-20); Creatinine Clr Calc Pharmacy 94.7 ml/min; Est GFR (African American) 93.2 ml/min; Est GFR (Non-African American) 80.4 ml/min
[2021-03-27 00:06] LABS: Glucose 239 mg/dl (70-99)
[2021-03-27] MEDS ORDERED: INSULIN REGULAR 250 UNITS in SODIUM CHLORIDE 0.9% 247.5 ML IV SCH (00:22)
[2021-03-27] MEDS ORDERED: PHARMACY GLYCEMIC MGMT CONSULT PRN (00:22)
[2021-03-27] MEDS ORDERED: ALBUTEROL HFA 8 GM INHALER INH PRN (00:22)
[2021-03-27] MEDS ORDERED: ONDANSETRON INJ 2 MG/ML 2 ML VIAL IV PRN (00:22)
[2021-03-27] MEDS ORDERED: NSS + 20MEQ KCL 20 MEQ/1,000 ML BAG IV SCH (00:22)
[2021-03-27] MEDS ORDERED: POLYETHYLENE (MIRALAX) 17 GM PACK PO PRN (00:22)
[2021-03-27 02:02] LABS: BUN Creatinine Ratio 16.2 (10-20); Calcium 8.8 mg/dl (8.5-10.1); Creatinine Clr Calc Pharmacy 107.4 ml/min; Est GFR (African American) 112.9 ml/min; Est GFR (Non-African American) 97.4 ml/min; Magnesium 2.1 mg/dl (1.8-2.4); Phosphorus 3.3 mg/dl (2.5-4.9); Potassium 3.9 mmol/L (3.5-5.1)
[2021-03-27] MEDS: D5W AND 1/2NSS + 20MEQ KCL 20 MEQ/1,000 ML BAG IV SCH ×2 (02:22→10:03)
[2021-03-27 05:01] LABS: Hematocrit (blood only) 44.2 % (42-52); Hemoglobin 15.4 g/dL (14.0-18.0); Mean Corpuscular Hgb Conc 34.8 g/dL (32-36); Mean Corpuscular Volume 86.2 fL (80-100); Mean Platelet Volume 10.4 fL (7.4-10.4); Platelet Count 212 K/uL (130-400); RDW Coefficient of Variation 13.6 % (11.5-14.5); RDW Standard Deviation 43.3 fL (36.4-46.3); Red Blood Count 5.13 M/uL (4.7-6.1)
[2021-03-27 05:22] LABS: Albumin Globulin Ratio 0.8 (0.9-2); Albumin Level 3.2 gm/dl (3.4-5.0); BUN Creatinine Ratio 15.5 (10-20); Bilirubin,Total 0.5 mg/dl (0.2-1); Calcium 8.7 mg/dl (8.5-10.1); Creatinine Clr Calc Pharmacy 100.9 ml/min; Est GFR (African American) 104.7 ml/min; Est GFR (Non-African American) 90.3 ml/min; Phosphorus 3.5 mg/dl (2.5-4.9); Potassium 3.6 mmol/L (3.5-5.1); Total Protein 7.2 gm/dl (6.4-8.2)
[2021-03-27 05:43] LABS: Beta-Hydroxybutyrate 2.42 mg/dl (0.2-2.81)
[2021-03-27] MEDS: LEVOTHYROXINE SODIUM 50 MCG TABLET PO SCH (06:22)
[2021-03-27 07:01] LABS: BUN Creatinine Ratio 16.5 (10-20); Calcium 8.6 mg/dl (8.5-10.1); Creatinine Clr Calc Pharmacy 112.2 ml/min; Est GFR (Non-African American) 101.8 ml/min; Magnesium 2.1 mg/dl (1.8-2.4); Phosphorus 2.9 mg/dl (2.5-4.9); Potassium 3.6 mmol/L (3.5-5.1)
[2021-03-27 07:33] LABS: Estimated Average Glucose 278 mg/dl; Hemoglobin A1C 11.3 % (4.5-5.6)
[2021-03-27] MEDS ORDERED: INSULIN GLARGINE SOLOSTAR 100 UNITS/ML 3 ML PEN SC ONE ×2 (08:30→15:00)
[2021-03-27] MEDS: PANTOprazole 40 MG TAB PO SCH (08:57)
[2021-03-27] MEDS: INSULIN ASPART 100 UNITS/ML 3 ML PEN SC SCH ×3 (12:14→21:07)
--- NOTE | 2021-03-27 12:59 | Hospitalist Progress Note ---
Date of Service March 27, 2021 Assessment & Plan (1) Hyperosmolar hyperglycemic state (HHS): Plan: Patient is 46 y/o M with PMH HTN, hypothyroidism, h/o gastric ulcer, polyp disorder, ADHD presented to ER for abnormal outpatient labs - glucose in 600's, fatigue and increased thirst. No known DM. 03/23/2021 patient received his second COVID-19 vaccine. Denies fever, cough, SOB, CP, dysuria, diarrhea. (2) DMII (diabetes mellitus, type 2): (3) Elevated LFTs: Plan: improved, cont to trend. Suspect fatty liver in setting of HH K insult. Right upper quadrant ultrasound ordered. (4) JENA (acute kidney injury): Plan: Appears resolved after rehydration. Trend BMP. (5) HTN (hypertension): Plan: Home Zestoretic was held, will consider restarting tomorrow. Blood pressure at goal. (6) Hypothyroidism: Plan: Continue levothyroxine per home regimen. (7) History of gastric ulcer: Plan: H/O gastric ulcer in 09/2020 secondary to NSAID use Continue PPI (8) DVT prophylaxis: Plan: SCD/ambulation, and Lovenox. Full code Disposition-to home when off insulin drip and feeling well Rand Lee DO [facility] Admission and Anticipated Discharge Date Admission Date: March 26, 2021 Subjective 46-year-old man presented with HH K, new onset diabetic. Did well with insulin drip overnight currently tolerating diet this morning. No nausea or vomiting. No GI symptoms at this time. Denies chest pain or shortness of breath. Continues to remain on insulin drip and is being started on subcutaneous Lantus with NovoLog for any additional correction factor. Diabetic nurse educator has been in to see the patient and I discussed diabetic pathophysiology and some target goals for glucose including fasting and postprandial with he and his father who was at bedside. Patient is slightly overwhelmed but managing. He is able to teach me back what I am telling him regarding targets. He verbalizes understanding of what role insulin plays in metabolizing sugar. Now urinating less frequently and still slightly thirsty but improving. Review of Systems Review of Systems: All systems reviewed and negative except as indicated in subjective above. Physical Exam Physical Exam: CONSTITUTIONAL: WNWD, vitals as above, generally well- appearing, NAD EYES: normal conjunctivae, no scleral icterus ENT: external ear and nose normal, oropharynx clear, MMM NECK: trachea midline RESPIRATORY: clear to auscultation bilaterally, no crackles, rales or wheezes, normal respiratory effort CARDIOVASCULAR: regular rate and rhythm, S1 and 2 heard without murmurs, gallops or rubs, no JVD, no peripheral edema CHEST: inspection of chest was normal GASTROINTESTINAL: normal bowel sounds, soft, nontender, ND, protuberant, no guarding MUSCULOSKELETAL: strength 5/5 throughout, head is normocephalic and atraumatic SKIN: warm and dry NEUROLOGIC: CN 2-12 grossly intact, no sensory deficit, normal cognition, normal speech, no tremor PSYCHIATRIC: alert cooperative and oriented to person, place and time. Euthymic mood, makes good eye contact, language grossly intact, recent and remote memory grossly intact. Results & Data Results & Data ([facility]) Vital Signs (Past 12 Hours) Vital Signs Temp Pulse Pulse Resp BP Pulse Ox 03/27/21 12:14 36.9 C 89 20 128/62 97 03/27/21 08:00 36.8 C 77 20 130/93 99 03/27/21 07:17 94 H 03/27/21 04:41 36.7 C 99 H 18 145/76 H 97 03/27/21 03:51 102 H Laboratory Results Short CBC 03/26/21 03/26/21 03/27/21 Range/Units 16:43 17:44 04:22 WBC Cancelled 9.92 7.50 Hgb Cancelled 16.5 15.4 Hct Cancelled 46.3 44.2 Plt Count Cancelled 224 212 BMP 03/26/21 03/26/21 03/26/21 16:43 18:55 21:45 Sodium 119 L* 135 L D Potassium 4.7 Chloride 83 L 103 Carbon Dioxide 26 29 BUN 23 H 18 Creatinine 1.52 H 1.09 Glucose 905 H* 475 H* 316 H* Calcium 10.3 H 9.0 03/26/21 03/27/21 03/27/21 23:28 01:08 04:22 Sodium 134 L 133 L Potassium 3.9 D 3.6 Chloride 99 97 L Carbon Dioxide 32 31 BUN 15 15 Creatinine 0.93 0.99 Glucose 239 H 203 H 315 H* Calcium 8.8 8.7 03/27/21 06:08 Sodium 133 L Potassium 3.6 Chloride 98 Carbon Dioxide 28 BUN 15 Creatinine 0.89 Glucose 299 H Calcium 8.6 Liver Function 03/26/21 03/27/21 Range/Units 16:43 04:22 Total Bilirubin 0.5 0.5 (0.2-1) mg/dl AST 170 H 102 H (15-37) U/L ALT 498 H 371 H (12-78) U/L Alkaline Phosphatase 265 H 158 H (45-117) U/L Albumin 3.7 3.2 L (3.4-5.0) gm/dl Urine 03/26/21 Range/Units 16:43 Urine Color Yellow Urine Appearance Clear (Clear) Urine pH 6.5 (4.5-7.5) Ur Specific [place] 1.025 (1.000-1.030) Urine Protein Negative (Negative) Urine Glucose (UA) 3+ H (Negative) Medications Administered Current Inpatient Medications Acetaminophen (Acetaminophen 325 Mg Tab) 650 mg PO Q4H PRN PRN Reason: Pain or Fever Stop: 04/26/21 00:21 Albuterol (Albuterol Hfa 8 Gm Inhaler) 2 puffs INH Q4H PRN PRN Reason: Shortness Of Breath Or Wheezin Stop: 04/26/21 00:21 Insulin Human Regular 250 (units/ Sodium Chloride) 250 mls @ 5.2 mls/hr IV .Q24H EFRAÍN; Protocol Stop: 04/25/21 18:14 Last Titration: 03/27/21 12:42 Dose: 5.2 units/hr, 5.2 mls/hr Documented by: Insulin Aspart (Insulin Aspart 100 Units/Ml 3 Ml Pen) 0 units SC ACHS EFRAÍN Stop: 04/26/21 11:29 Last Admin: 03/27/21 12:14 Dose: 7 units Documented by: Levothyroxine Sodium (Levothyroxine Sodium 50 Mcg Tablet) 50 mcg PO DAILYBB [facility] Stop: 04/26/21 06:29 Last Admin: 03/27/21 06:22 Dose: 50 mcg Documented by: Miscellaneous Information (Pharmacy Glycemic Mgmt Consult) 1 ea N/A UD PRN PRN Reason: Consult Stop: 04/26/21 00:21 Ondansetron HCl (Ondansetron Inj 2 Mg/Ml 2 Ml Vial) 4 mg IV Q6H PRN PRN Reason: Nausea Stop: 04/26/21 00:21 Pantoprazole Sodium (Pantoprazole 40 Mg Tab) 40 mg PO DAILY EFRAÍN Stop: 04/26/21 08:59 Last Admin: 03/27/21 08:57 Dose: 40 mg Documented by: Polyethylene Glycol (Polyethylene (Miralax) 17 Gm Pack) 17 gm PO DAILY PRN PRN Reason: Constipation Stop: 04/26/21 00:21
[2021-03-27 13:45] LABS: BUN Creatinine Ratio 11.4 (10-20); Calcium 8.7 mg/dl (8.5-10.1); Creatinine Clr Calc Pharmacy 83.2 ml/min; Est GFR (Non-African American) 71.6 ml/min; Magnesium 1.9 mg/dl (1.8-2.4); Potassium 4.1 mmol/L (3.5-5.1)
[2021-03-27 13:46] LABS: Phosphorus 2.5 mg/dl (2.5-4.9)
--- NOTE | 2021-03-27 15:03 | Pharmacy Report ---
Pharmacy Glycemic Short Note 2 - Date of Service March 27, 2021 - Glycemic Short BSG Results (Last 24 hours): 03/26/21 03/26/21 03/26/21 16:21 16:43 17:57 Glucose 905 H* POC Glucose > 600 H* > 600 H* 03/26/21 03/26/21 03/26/21 18:55 21:45 23:28 Glucose 475 H* 316 H* 239 H POC Glucose 03/27/21 03/27/21 03/27/21 00:38 00:58 01:08 Glucose 203 H POC Glucose 186 H 178 H 03/27/21 03/27/21 03/27/21 01:15 01:31 01:46 Glucose POC Glucose 186 H 208 H 208 H 03/27/21 03/27/21 03/27/21 02:01 02:15 02:30 Glucose POC Glucose 222 H 232 H 212 H 03/27/21 03/27/21 03/27/21 02:46 03:01 03:18 Glucose POC Glucose 243 H 246 H 275 H 03/27/21 03/27/21 03/27/21 04:22 04:23 05:25 Glucose 315 H* POC Glucose 293 H 274 H 03/27/21 03/27/21 03/27/21 06:08 06:23 08:19 Glucose 299 H POC Glucose 256 H 251 H 03/27/21 03/27/21 03/27/21 10:18 11:22 12:39 Glucose POC Glucose 223 H 217 H 247 H 03/27/21 03/27/21 03/27/21 12:43 13:24 14:34 Glucose 296 H POC Glucose 274 H 195 H OUTPATIENT ANTIDIABETIC REGIMEN: * N/A * HbA1c: 11.3% (03/26/21) ASSESSMENT: * Mr Miller is a 46yo previously undiagnosed diabetic male. He presented to ED with weakness and reports of polydipsia/polyuria. Pt reports recent COVID-19 infection. * Pt started on IV insulin infusion for HHS last evening. * Transition to SQ insulin started this morning. * Lantus 30 units x1 dose given this morning * Insulin gtt rates continue to be high (have even increased throughout the day, despite addition of Lantus) * Lantus 20 units x1 additional dose ordered for this afternoon * Anticipate that insulin gtt may be required overnight, but will certainly stop it when able. PLAN FOR INPATIENT GLYCEMIC CONTROL: * Hold outpatient oral diabetes medications * Basal insulin * Lantus 50 units total given today * Further dosing based on insulin requirements overnight tonight * IV insulin infusion: * may d/c IV insulin infusion when BOTH of the following criteria are met: * BSG below 180mg/dl x 2 checks 1 hr apart * Rate 2 unit/hr or BELOW * Bolus insulin * While insulin infusion is still running: -- carb ratio per Insulin Infusion Adjustment Calculator * Once insulin infusion has stopped: * NovoLog per scale ACHS or Q6hrs while NPO * Goal Range: Low 110 mg/dL - High 140 mg/dL * Correction Factor: 15 mg/dL/unit * Nutritional / Prandial insulin per carb ratio of 1 unit per 5 grams CHO consumed PLAN FOR DISCHARGE: * tbd
--- NOTE | 2021-03-27 19:26 | Electrocardiogram Report ---
Test Reason : Blood Pressure : / mmHG Vent. Rate : 120 BPM Atrial Rate : 120 BPM P-R Int : 152 ms QRS Dur : 078 ms QT Int : 302 ms P-R-T Axes : 064 -10 057 degrees QTc Int : 426 ms Sinus tachycardia Possible Inferior infarct , age undetermined Abnormal ECG When compared with ECG of 15-SEP-2020 17:59, Inferior infarct is now Present Confirmed by Evelio Schultz ([id number]) on 03/27/2021 7:25:33 PM Referred By: Ngoc Fu Confirmed By:Evelio Schultz
[2021-03-28] MEDS: LEVOTHYROXINE SODIUM 50 MCG TABLET PO SCH (06:06)
[2021-03-28] MEDS ORDERED: INSULIN GLARGINE SOLOSTAR 100 UNITS/ML 3 ML PEN SC ONE (08:15)
[2021-03-28] MEDS: PANTOprazole 40 MG TAB PO SCH (08:17)
[2021-03-28] MEDS: INSULIN ASPART 100 UNITS/ML 3 ML PEN SC SCH ×4 (08:19→21:30)
[2021-03-28] MEDS: ACETAMINOPHEN 325 MG TAB PO PRN (09:23)
[2021-03-28 10:47] LABS: Beta-Hydroxybutyrate 1.27 mg/dl (0.2-2.81)
--- NOTE | 2021-03-28 11:37 | Hospitalist Progress Note ---
Date of Service March 28, 2021 Assessment & Plan (1) Hyperosmolar hyperglycemic state (HHS): Plan: Initial hyperglycemia and HHS state has resolved. Continues on insulin drip and is tolerating p.o., eating more as above, likely the cause of the hypoglycemia seen this morning. He continues on once daily dose Lantus and multi daily dose insulin for correction factor. Likely transition from insulin drip to subcutaneous insulin this afternoon. Starting Metformin this evening and will plan to discharge him on once daily dose of Metformin in the evening with dinner. Close follow-up with MTM recommended and message sent through [employer] today. (2) DMII (diabetes mellitus, type 2): Plan: Per plan above. (3) Elevated LFTs: Plan: improved, cont to trend. Suspect fatty liver in setting of HHK insult. Right upper quadrant ultrasound ordered and pending. (4) JENA (acute kidney injury): Plan: Appears resolved after rehydration. Trend BMP. (5) HTN (hypertension): Plan: Blood pressure at goal, restart home Zestoretic (6) Hypothyroidism: Plan: Continue levothyroxine per home regimen. (7) History of gastric ulcer: Plan: H/O gastric ulcer in 09/2020 secondary to NSAID use Continue PPI (8) DVT prophylaxis: Plan: Lovenox Full code Disposition-to home when off insulin drip and feeling well, likely tomorrow Rand Lee DO [facility] Hospitalist Admission and Anticipated Discharge Date Admission Date: March 26, 2021 Subjective 46-year-old man presented with HHK, new onset diabetic. Glucose is increased this morning. Upon questioning the patient he reports feeling better likely eating more. Also next of been covered per nursing. Glucose went from 1 teens to 370s. He remains on the insulin drip at this time at a rate of 3 to 4 units/h. He received 50 units of Lantus this morning and received 50 units of Lantus yesterday. Discussion with the pharmacist regarding outpatient regimen for discharge ensued which is compatible with diabetic nurse educator plan. Patient is amenable to once daily dose insulin in addition to Metformin. Discussed this with the patient at bedside. He denies any pain, chest pain, shortness of breath, or other issues. Review of Systems Review of Systems: All systems reviewed and negative except as indicated in subjective above. Physical Exam Physical Exam: CONSTITUTIONAL: WNWD, vitals as above, generally well- appearing, NAD EYES: normal conjunctivae, no scleral icterus ENT: external ear and nose normal, oropharynx clear, MMM NECK: trachea midline RESPIRATORY: clear to auscultation bilaterally, no crackles, rales or wheezes, normal respiratory effort CARDIOVASCULAR: regular rate and rhythm, S1 and 2 heard without murmurs, gallops or rubs, no JVD, no peripheral edema CHEST: inspection of chest was normal GASTROINTESTINAL: normal bowel sounds, soft, nontender, ND, protuberant, no guarding MUSCULOSKELETAL: strength 5/5 throughout, head is normocephalic and atraumatic SKIN: warm and dry NEUROLOGIC: CN 2-12 grossly intact, no sensory deficit, normal cognition, normal speech, no tremor PSYCHIATRIC: alert cooperative and oriented to person, place and time. Euthymic mood, makes good eye contact, language grossly intact, recent and remote memory grossly intact. Results & Data Results & Data ([facility]) Vital Signs (Past 12 Hours) Vital Signs Temp Pulse Pulse Resp BP Pulse Ox Pulse Ox 03/28/21 07:59 36.4 C L 83 18 131/68 95 03/28/21 07:11 90 03/28/21 03:00 36.7 C 88 18 143/93 H 92 03/28/21 00:28 36.7 C 97 H 17 136/89 94 03/28/21 00:22 92 03/28/21 00:00 99 H Laboratory Results [facility] 03/27/21 03/28/21 12:43 09:57 Sodium 131 L Potassium 4.1 Chloride 100 Carbon Dioxide 25 BUN 14 Creatinine 1.20 D Glucose 296 H 313 H* Calcium 8.7 Medications Administered Current Inpatient Medications Acetaminophen (Acetaminophen 325 Mg Tab) 650 mg PO Q4H PRN PRN Reason: Pain or Fever Stop: 04/26/21 00:21 Last Admin: 03/28/21 09:23 Dose: 650 mg Documented by: Albuterol (Albuterol Hfa 8 Gm Inhaler) 2 puffs INH Q4H PRN PRN Reason: Shortness Of Breath Or Wheezin Stop: 04/26/21 00:21 Enoxaparin Sodium (Enoxaparin Inj 40 Mg/0.4 Ml Syr) 40 mg SQ Q24H EFRAÍN Stop: 04/27/21 11:44 Lisinopril/HCTZ (Lisinopril/Hctz 10/12.5mg Tab) 1 tab PO DAILY [facility] Stop: 04/27/21 10:59 Insulin Human Regular 250 (units/ Sodium Chloride) 250 mls @ 4.6 mls/hr IV .Q24H EFRAÍN; Protocol Stop: 04/25/21 18:14 Last Titration: 03/28/21 10:43 Dose: 4.6 units/hr, 4.6 mls/hr Documented by: Insulin Aspart (Insulin Aspart 100 Units/Ml 3 Ml Pen) 0 units SC ACHS EFRAÍN Stop: 04/26/21 11:29 Last Admin: 03/28/21 08:19 Dose: 10 units Documented by: Levothyroxine Sodium (Levothyroxine Sodium 50 Mcg Tablet) 50 mcg PO DAILYBB [facility] Stop: 04/26/21 06:29 Last Admin: 03/28/21 06:06 Dose: 50 mcg Documented by: Metformin HCl (Metformin Hcl Er 500 Mg Tabcr) 500 mg PO QDD [facility] Stop: 04/27/21 16:29 Miscellaneous (Pending Order) 1 ea N/A Q2H EFRAÍN Stop: 04/26/21 14:59 Miscellaneous Information (Pharmacy Glycemic Mgmt Consult) 1 ea N/A UD PRN PRN Reason: Consult Stop: 04/26/21 00:21 Ondansetron HCl (Ondansetron Inj 2 Mg/Ml 2 Ml Vial) 4 mg IV Q6H PRN PRN Reason: Nausea Stop: 04/26/21 00:21 Pantoprazole Sodium (Pantoprazole 40 Mg Tab) 40 mg PO DAILY [facility] Stop: 04/26/21 08:59 Last Admin: 03/28/21 08:17 Dose: 40 mg Documented by: Polyethylene Glycol (Polyethylene (Miralax) 17 Gm Pack) 17 gm PO DAILY PRN PRN Reason: Constipation Stop: 04/26/21 00:21
[2021-03-28] MEDS: LISINOPRIL/HCTZ 10/12.5MG TAB PO SCH (12:03)
[2021-03-28] MEDS: ENOXAPARIN INJ 40 MG/0.4 ML SYR SQ SCH (12:04)
[2021-03-28 12:27] LABS: BUN Creatinine Ratio 16.8 (10-20); Calcium 8.6 mg/dl (8.5-10.1); Creatinine Clr Calc Pharmacy 123.9 ml/min; Est GFR (African American) 122.7 ml/min; Est GFR (Non-African American) 105.8 ml/min; Potassium 3.5 mmol/L (3.5-5.1)
--- NOTE | 2021-03-28 13:04 | Pharmacy Report ---
Pharmacy Glycemic Short Note 2 - Date of Service March 28, 2021 - Glycemic Short BSG Results (Last 24 hours): 03/27/21 03/27/21 03/27/21 12:43 13:24 14:34 Glucose 296 H POC Glucose 274 H 195 H 03/27/21 03/27/21 03/27/21 15:52 16:29 17:43 Glucose POC Glucose 211 H 191 H 255 H 03/27/21 03/27/21 03/27/21 18:26 19:19 20:21 Glucose POC Glucose 247 H 195 H 154 H 03/27/21 03/27/21 03/27/21 21:25 22:24 23:22 Glucose POC Glucose 179 H 203 H 158 H 03/28/21 03/28/21 03/28/21 00:25 01:15 02:20 Glucose POC Glucose 153 H 157 H 147 H 03/28/21 03/28/21 03/28/21 03:14 04:23 05:24 Glucose POC Glucose 142 H 135 H 145 H 03/28/21 03/28/21 03/28/21 06:24 07:19 09:30 Glucose POC Glucose 161 H 179 H 337 H* 03/28/21 03/28/21 03/28/21 09:31 09:39 09:57 Glucose 313 H* POC Glucose 378 H* 309 H* 03/28/21 03/28/21 11:41 11:44 Glucose 180 H POC Glucose 179 H OUTPATIENT ANTIDIABETIC REGIMEN: * N/A * HbA1c: 11.3% (03/26/21) ASSESSMENT: 03/28/21: * BSGs have been relatively well-controlled since yesterday afternoon, with the exception of an episode of unexplainable hyperglycemia this morning. * Patient has remained on 3-4 units/hr of insulin infusion, despite initiation of Lantus yesterday. * Lantus dosed again this morning, with the goal of stopping the insulin drip some time today. * Pre-lunch BSG was improved, and drip calculator instructed RN to hold drip temporarily. Will attempt to just stop gtt at this time, with the understanding that it may need to restart if BSGs quickly rise again. 03/27 * Mr Miller is a 46yo previously undiagnosed diabetic male. He presented to ED with weakness and reports of polydipsia/polyuria. Pt reports recent COVID-19 infection. * Pt started on IV insulin infusion for HHS last evening. * Transition to SQ insulin started this morning. * Lantus 30 units x1 dose given this morning * Insulin gtt rates continue to be high (have even increased throughout the day, despite addition of Lantus) * Lantus 20 units x1 additional dose ordered for this afternoon * Anticipate that insulin gtt may be required overnight, but will certainly stop it when able. PLAN FOR INPATIENT GLYCEMIC CONTROL: * Hold outpatient oral diabetes medications * Basal insulin * Lantus 50 units SQ daily * IV insulin infusion: * on hold for now -- will resume if BSGs become significantly elevated * Bolus insulin * Once insulin infusion has stopped: * NovoLog per scale ACHS or Q6hrs while NPO * Goal Range: Low 110 mg/dL - High 140 mg/dL * Correction Factor: 15 mg/dL/unit * Nutritional / Prandial insulin per carb ratio of 1 unit per 5 grams CHO consumed PLAN FOR DISCHARGE: * A1c: 11.3% * Recommend adding basal insulin (once-daily) and Metformin. Anticipate that patient's insulin sensitivity will improve and that doses will require adjustment. Patient should have prompt and frequent follow-up with outpt provider until stable. * Consider starting with Lantus 50 units SQ daily (or comparable insulin, selected based on pt's insurance coverage) * Patients new to basal insulin should probably SMBG: Fasting (upon waking) At bedtime When they suspect low blood glucose After treating low blood glucose until they are normoglycemic Prior to critical tasks such as driving Occasionally postprandially * Metformin should be started at the time type 2 diabetes is diagnosed unless there are contraindications. Metformin is effective and safe, is inexpensive, and may reduce risk of cardiovascular events and . * B12 supplementation may be necessary with psychiatric assistant metformin use * FDA has revised the label for metformin to reflect its safety in patients with eGFR 30 mL/min or above * Recommend starting: Metformin XR 500mg PO daily with evening meal. Typically the XR formulation of metformin is better tolerated than the immediate release formulation. Continue to titrate metformin dosing upwards as recommended. Dosage increases should be made in increments of 500 mg weekly, up to 2,000 mg/day PO, given in divided doses. Doses above 2000 mg/day may be better tolerated if divided and given 3 times per day with meals. Max: 2,550 mg/day PO, in divided doses * Support Patient Self-Management * Healthy Lifestyle (diet, exercise, and smoking cessation) * Disease self-management (SMBG) * Prevention of complications (BP, Lipid goals, Immunizations) * Consider outpatient Diabetes Self-Management Education & Support
[2021-03-28] MEDS ORDERED: metFORMIN HCL ER 500 MG TABCR PO SCH (16:30)
--- NOTE | 2021-03-28 16:57 | Ultrasound Report ---
US liver CLINICAL HISTORY: elevated LFTs TECHNIQUE: Multiple real-time sonographic images of the right upper quadrant were obtained. Comparison: None available at the time of this dictation. FINDINGS: The liver is diffusely echogenic in appearance with poor ultrasound penetration, with normal contour, which is consistent with fatty infiltration. Hepatomegaly is seen, the liver measures 22.4 cm in rowan gth. No focal mass lesions are seen. No intrahepatic ductal dilatation is seen. No gallstones or sludge are identified within the gallbladder. The gallbladder wall is not thickened. There is no per icholecystic fluid present. The common duct measures 0.6 cm in diameter at the level of the hepatic a rtery. A sonographic Carolina's sign was not elicited by the continuous absorption process operator. The distal pancreas is no t visualized due to overlying bowel gas. The visualized portions of the pancreas are unremarkable. The right kidney shows normal echogenicity, cortical thickness and renal contour. The right kidney sh ows no evidence of hydronephrosis or mass. No ascites or free fluid is seen in Ball's pouch. IMPRESSION: Hepatic steatosis and hepatomegaly. Otherwise no acute abnormalities. ACT 112: Negative or not required by law. Electronically signed by: Joel Roth M.D. 03/28/2021 4:55 PM
[2021-03-28] MEDS: INSULIN REGULAR 250 UNITS in SODIUM CHLORIDE 0.9% 247.5 ML IV SCH (18:16)
[2021-03-29] MEDS: INSULIN ASPART 100 UNITS/ML 3 ML PEN SC SCH ×4 (00:26→12:42)
[2021-03-29] MEDS: ACETAMINOPHEN 325 MG TAB PO PRN (04:26)
[2021-03-29] MEDS: LEVOTHYROXINE SODIUM 50 MCG TABLET PO SCH (05:53)
[2021-03-29] MEDS: PANTOprazole 40 MG TAB PO SCH (08:26)
[2021-03-29] MEDS: LISINOPRIL/HCTZ 10/12.5MG TAB PO SCH (08:26)
[2021-03-29] MEDS ORDERED: INSULIN GLARGINE SOLOSTAR 100 UNITS/ML 3 ML PEN SC SCH (09:00)
--- NOTE | 2021-03-29 09:31 | Discharge Summary ---
Date of Service March 29, 2021 Admission HPI Per Admitting Provider Patient is 46 y/o M with PMH HTN, hypothyroidism, h/o gastric ulcer, polyp disorder, ADHD presented to ER for abnormal labs-hyperglycemia. Patient reports past several days has had increased fatigue, increased thirst. He reports that he "always feels tired" when attributed to working 6 days a week. He also reports that he drinks a lot of soda, juices at baseline. 03/23/2021 patient received his second COVID-19 vaccine. He attributed the increased fatigue to vaccine side effects. Had myalgias day after vaccine but states those have improved. Had JUARES yesterday which has since resolved. Patient had COVID-19 i nfection 07/2020. Past several days patient has been drinking large amount of fluids including soda, juice, Gatorade, coffee, water. Patient states he is urinating frequently but attributed to drinking more fluids. Denies any known history of diabetes. Patient seen PCPs office today and labs were ordered showing glucose in the 600s and was referred to ER. Denies fever/chills, diaphoresis, N/V/D/C, JUARES, dizziness, syncope, vision changes, neck pain, CP, SOB, orthopnea, palpitations, cough, sore throat, choking, otalgia, rhinorrhea, abdominal pain, paresthesias, extremity weakness, extremity edema, rashes, dysuria, hematuria. In ER patient afebrile, P: 129, BP 166/109, 94% on room air. No leukocytosis. Corrected sodium of 132, K: 4.7. Glucose: 95, A, creatinine 1.5, UA: 3+ glucose, negative ketones. Chest x-ray no acute infiltrate In ER given 2 L NSS, insulin drip started Admission Exam Per Admitting Provider Physical Exam: General: no distress, obese Head: normocephalic, atraumatic Eyes: PERRL, EOM's intact, conjunctiva non-injected, anicteric ENT: normal inspection external ears, nose, mucous membranes dry Neck: supple, trachea midline Lungs: clear, no respiratory distress, no wheezing/rhonchi/rales CV: tachycardia, rate 118, no murmur, no pretibial edema Abd: normal BS, soft, non-tender Ext: no cyanosis, no calf tenderness Neuro: A&O x 3, answers some questions with delayed response, no focal deficits noted, normal affect Skin: warm, dry Principal Diagnosis Hyperosmolar hyperglycemic state Type II diabetes mellitus Elevated transaminases Hepatic steatosis JENA-resolved Discharge Exam CONSTITUTIONAL: WNWD, vitals as above, generally well-appearing, NAD EYES: normal conjunctivae, no scleral icterus ENT: external ear and nose normal, oropharynx clear, MMM NECK: trachea midline RESPIRATORY: clear to auscultation bilaterally, no crackles, rales or wheezes, normal respiratory effort CARDIOVASCULAR: regular rate and rhythm, S1 and 2 heard without murmurs, gallops or rubs, no JVD, no peripheral edema CHEST: inspection of chest was normal GASTROINTESTINAL: normal bowel sounds, soft, nontender, ND, protuberant, no guarding MUSCULOSKELETAL: strength 5/5 throughout, head is normocephalic and atraumatic SKIN: warm and dry NEUROLOGIC: CN 2-12 grossly intact, no sensory deficit, normal cognition, normal speech, no tremor PSYCHIATRIC: alert cooperative and oriented to person, place and time. Euthymic mood, makes good eye contact, language grossly intact, recent and remote memory grossly intact. Discharge Data Allergies Allergy/AdvReac Type Severity Reaction Status Date / Time cephalexin Allergy Unknown CAN'T Verified 03/26/21 16:29 REMEMBER Consultations 03/26/21 18:23 ED Decision to Admit Stat Ordered Studies Laboratory Results WBC 7.50 K/uL (4.8-10.8) 03/27/21 04:22 RBC 5.13 M/uL (4.7-6.1) 03/27/21 04:22 Hgb 15.4 g/dL (14.0-18.0) 03/27/21 04:22 Hct 44.2 % (42-52) 03/27/21 04:22 MCV 86.2 fL (80-100) 03/27/21 04:22 MCH 30.0 pg (25-34) 03/27/21 04:22 MCHC 34.8 g/dL (32-36) 03/27/21 04:22 RDW Std Deviation 43.3 fL (36.4-46.3) 03/27/21 04:22 RDW Coeff of Yuan 13.6 % (11.5-14.5) 03/27/21 04:22 Plt Count 212 K/uL (130-400) 03/27/21 04:22 MPV 10.4 fL (7.4-10.4) 03/27/21 04:22 Immature Gran % (Auto) 0.4 % 03/26/21 17:44 Neut % (Auto) 78.3 % 03/26/21 17:44 Lymph % (Auto) 12.7 % 03/26/21 17:44 [place] % (Auto) 7.8 % 03/26/21 17:44 Eos % (Auto) 0.6 % 03/26/21 17:44 Baso % (Auto) 0.2 % 03/26/21 17:44 Neut # (Auto) 7.77 K/uL (1.4-6.5) H 03/26/21 17:44 Lymph # (Auto) 1.26 K/uL (1.2-3.4) 03/26/21 17:44 [place] # (Auto) 0.77 K/uL (0.11-0.59) H 03/26/21 17:44 Eos # (Auto) 0.06 K/uL (0-0.5) 03/26/21 17:44 Baso # (Auto) 0.02 K/uL (0-0.2) 03/26/21 17:44 Immature Gran # (Auto) 0.04 K/uL (0.00-0.02) H 03/26/21 17:44 Absolute Nucleated RBC Cancelled 03/26/21 16:43 Nucleated RBC % (auto) Cancelled 03/26/21 16:43 Neutrophils % (Manual) Cancelled 03/26/21 16:43 Band Neutrophils % Cancelled 03/26/21 16:43 Lymphocytes % (Manual) Cancelled 03/26/21 16:43 Prolymphocyte % Cancelled 03/26/21 16:43 Reactive Lymphs % (Man) Cancelled 03/26/21 16:43 Monocytes % (Manual) Cancelled 03/26/21 16:43 Eosinophils % (Manual) Cancelled 03/26/21 16:43 Basophils % (Manual) Cancelled 03/26/21 16:43 Metamyelocytes % (Man) Cancelled 03/26/21 16:43 Myelocytes % (Man) Cancelled 03/26/21 16:43 Promyelocytes % (Man) Cancelled 03/26/21 16:43 Blast Cells % (Manual) Cancelled 03/26/21 16:43 Plasma Cell % (Manual) Cancelled 03/26/21 16:43 Other Cells % Cancelled 03/26/21 16:43 Nucleated RBC % Cancelled 03/26/21 16:43 Neutrophils # (Manual) Cancelled 03/26/21 16:43 Band Neutrophils # Cancelled 03/26/21 16:43 Total Absolute Neuts Cancelled 03/26/21 16:43 Lymphocytes # (Manual) Cancelled 03/26/21 16:43 Prolymphocyte # Cancelled 03/26/21 16:43 Reactive Lymphs # Cancelled 03/26/21 16:43 Total Abs Lymphocytes Cancelled 03/26/21 16:43 Monocytes # (Manual) Cancelled 03/26/21 16:43 Eosinophils # (Manual) Cancelled 03/26/21 16:43 Basophils # (Manual) Cancelled 03/26/21 16:43 Metamyelocytes # (Man) Cancelled 03/26/21 16:43 Myelocytes # (Manual) Cancelled 03/26/21 16:43 Promyelocytes # (Man) Cancelled 03/26/21 16:43 Blast Cells # (Man) Cancelled 03/26/21 16:43 Plasma Cell # (Manual) Cancelled 03/26/21 16:43 Other Cells # Cancelled 03/26/21 16:43 Nucleated RBCs # (Man) Cancelled 03/26/21 16:43 Hypersegmented Neuts Cancelled 03/26/21 16:43 Hyposegmented Neuts Cancelled 03/26/21 16:43 Hypogranular Neuts Cancelled 03/26/21 16:43 Large Granular Lymphs Cancelled 03/26/21 16:43 # Lrg Granular Lymphs Cancelled 03/26/21 16:43 Hairy Cells Cancelled 03/26/21 16:43 Smudge Cells Cancelled 03/26/21 16:43 Toxic Granulation Cancelled 03/26/21 16:43 Toxic Vacuolation Cancelled 03/26/21 16:43 Dohle Bodies Cancelled 03/26/21 16:43 David Rods Cancelled 03/26/21 16:43 Platelet Estimate Cancelled 03/26/21 16:43 Hypogranular Platelets Cancelled 03/26/21 16:43 Clumped Platelets Cancelled 03/26/21 16:43 Giant Platelets Cancelled 03/26/21 16:43 Platelet Satelliting Cancelled 03/26/21 16:43 RBC Morphology Cancelled 03/26/21 16:43 Polychromasia Cancelled 03/26/21 16:43 Hypochromasia Cancelled 03/26/21 16:43 Poikilocytosis Cancelled 03/26/21 16:43 Basophilic Stippling Cancelled 03/26/21 16:43 Anisocytosis Cancelled 03/26/21 16:43 Microcytosis Cancelled 03/26/21 16:43 Macrocytosis Cancelled 03/26/21 16:43 Spherocytes Cancelled 03/26/21 16:43 Pappenheimer Bodies Cancelled 03/26/21 16:43 Sickle Cells Cancelled 03/26/21 16:43 Target Cells Cancelled 03/26/21 16:43 Tear Drop Cells Cancelled 03/26/21 16:43 Ovalocytes Cancelled 03/26/21 16:43 Stomatocytes Cancelled 03/26/21 16:43 Casey-Bear Bodies Cancelled 03/26/21 16:43 Echinocytes Cancelled 03/26/21 16:43 Acanthocytes (Spur) Cancelled 03/26/21 16:43 Rouleaux Cancelled 03/26/21 16:43 RBC Agglutinates Cancelled 03/26/21 16:43 Schistocytes Cancelled 03/26/21 16:43 RBC Morph Comment Cancelled 03/26/21 16:43 Sezary Cell Cancelled 03/26/21 16:43 VBG pH 7.47 (7.36-7.41) H 03/26/21 20:05 VBG pCO2 45 mmHg (38-50) 03/26/21 20:05 VBG pO2 60 mmHg 03/26/21 20:05 VBG HCO3 33 mmol/L 03/26/21 20:05 VBG O2 Saturation 92.1 % 03/26/21 20:05 VBG Base Excess 7.6 mEq/L 03/26/21 20:05 Barometric Pressure 737.0 mm/Hg 03/26/21 20:05 Sodium 134 mmol/L (136-145) L 03/28/21 11:44 Potassium 3.5 mmol/L (3.5-5.1) 03/28/21 11:44 Chloride 101 mmol/L (98-107) 03/28/21 11:44 Carbon Dioxide 26 mmol/L (21-32) 03/28/21 11:44 Anion Gap 7.0 (3-11) 03/28/21 11:44 BUN 14 mg/dl (7-18) 03/28/21 11:44 Creatinine 0.81 mg/dl (0.6-1.4) D 03/28/21 11:44 Est Cr Clr Drug Dosing 123.9 ml/min 03/28/21 11:44 Est GFR ( Amer) 122.7 ml/min 03/28/21 11:44 Est GFR (Non-Af Amer) 105.8 ml/min 03/28/21 11:44 BUN/Creatinine Ratio 16.8 (10-20) 03/28/21 11:44 Glucose 180 mg/dl (70-99) H 03/28/21 11:44 POC Glucose 176 mg/dl (70-99) H 03/29/21 08:12 Estimat Average Glucose 278 mg/dl 03/26/21 17:44 Hemoglobin A1c 11.3 % (4.5-5.6) H 03/26/21 17:44 Osmolality 320 mOsm/kg (280-300) H 03/26/21 16:43 Lactate 0.9 mmol/L (0.4-2.0) 03/27/21 01:08 Calcium 8.6 mg/dl (8.5-10.1) 03/28/21 11:44 Phosphorus 2.5 mg/dl (2.5-4.9) 03/27/21 12:43 Magnesium 1.9 mg/dl (1.8-2.4) 03/27/21 12:43 Total Bilirubin 0.5 mg/dl (0.2-1) 03/27/21 04:22 AST 102 U/L (15-37) H 03/27/21 04:22 ALT 371 U/L (12-78) H 03/27/21 04:22 Alkaline Phosphatase 158 U/L (45-117) H 03/27/21 04:22 Total Protein 7.2 gm/dl (6.4-8.2) 03/27/21 04:22 Albumin 3.2 gm/dl (3.4-5.0) L 03/27/21 04:22 Globulin 4.0 gm/dl (2.5-4.0) 03/27/21 04:22 Albumin/Globulin Ratio 0.8 (0.9-2) L 03/27/21 04:22 Beta-Hydroxybutyric Acd 1.27 mg/dl (0.2-2.81) 03/28/21 09:57 Specimen Hemolysis 03/26/21 17:44 Urine Color Yellow 03/26/21 16:43 Urine Appearance Clear (Clear) 03/26/21 16:43 Urine pH 6.5 (4.5-7.5) 03/26/21 16:43 Ur Specific [place] 1.025 (1.000-1.030) 03/26/21 16:43 Urine Protein Negative (Negative) 03/26/21 16:43 Urine Glucose (UA) 3+ (Negative) H 03/26/21 16:43 Urine Ketones Negative (Negative) 03/26/21 16:43 Urine Blood Negative (Negative) 03/26/21 16:43 Urine Nitrite Negative (Negative) 03/26/21 16:43 Urine Bilirubin Negative (Negative) 03/26/21 16:43 Urine Urobilinogen Negative (Negative) 03/26/21 16:43 Ur Leukocyte Esterase Negative (Negative) 03/26/21 16:43 COVID-19 Eval Order Covid19 at [facility] 03/26/21 19:50 SARS-CoV-2 (PCR) NEGATIVE (Negative) 03/26/21 19:50 Impressions Chest X-Ray 03/26/21 19:15 XR chest 1V portable CLINICAL HISTORY: Cough. Evaluate for pneumonia. COMPARISON STUDY: Chest radiograph September 18, 2020. FINDINGS: Lung volumes are normal. Emphysema is noted. Lungs are clear. There is no pneumothorax or pleural effusion. Cardiac size is normal. Mediastinal contours are normal. There is no evidence for pulmonary edema. IMPRESSION: No acute cardiopulmonary findings. Emphysema. ACT 112: Negative or not required by law. Electronically signed by: Tylor Fraser M.D. 03/26/2021 7:32 PM Liver Ultrasound 03/28/21 11:29 US liver CLINICAL HISTORY: elevated LFTs TECHNIQUE: Multiple real-time sonographic images of the right upper quadrant were obtained. Comparison: None available at the time of this dictation. FINDINGS: The liver is diffusely echogenic in appearance with poor ultrasound penetration, with normal contour, which is consistent with fatty infiltration. Hepatomegaly is seen, the liver measures 22.4 cm in length. No focal mass lesions are seen. No intrahepatic ductal dilatation is seen. No gallstones or sludge are identified within the gallbladder. The gallbladder wall is not thickened. There is no pericholecystic fluid present. The common duct measures 0.6 cm in diameter at the level of the hepatic artery. A sonographic Carolina's sign was not elicited by the beam machine operator. The distal pancreas is not visualized due to overlying bowel gas. The visualized portions of the pancreas are unremarkable. The right kidney shows normal echogenicity, cortical thickness and renal contour. The right kidney shows no evidence of hydronephrosis or mass. No ascites or free fluid is seen in Ball's pouch. IMPRESSION: Hepatic steatosis and hepatomegaly. Otherwise no acute abnormalities. ACT 112: Negative or not required by law. Electronically signed by: Joel Roth M.D. 03/28/2021 4:55 PM Hospital Course (1) Hyperosmolar hyperglycemic state (HHS): New diagnosis of diabetes. A1C is 11.3. Initial hyperglycemia and HHS state has resolved after treatment with insulin drip. Started on once daily Lantus and multi daily dose insulin for carbohydrate coverage and correction factor as an inpatient. Discharged on once daily Lantus and Metformin with dinner. Close follow-up with MTM recommended and message sent through [facility]. (2) DMII (diabetes mellitus, type 2): Per plan above. (3) Elevated LFTs: improved, cont to trend. Suspected fatty liver in setting of HHK insult. Liver us confirmed presence of hepatic steatosis and diet/weight loss recommended to patient who also discussed meal plan options with on site diabetic nurse educator. Still elevated but coming down by time of discharge. Recommend repeat in PCP office in next couple of weeks to ensure complete resolution to normal. (4) JENA (acute kidney injury): Appears resolved after rehydration. Trend BMP. (5) HTN (hypertension): Blood pressure at goal, restart home Zestoretic (6) Hypothyroidism: Continue levothyroxine per home regimen. (7) History of gastric ulcer: H/O gastric ulcer in 09/2020 secondary to NSAID use Continue PPI Total Time Total Time Spent Total Time Spent (In Minutes): 60 Discharge Plan Discharge Items Patient Disposition: Home - Self-Care Reason For Visit: HYPERGLYCEMIA Discharge Diagnosis: Hyperosmolar hyperglycemic state Type II diabetes mellitus Elevated transaminases Hepatic steatosis JENA-resolved Condition on Discharge: Good Activity: Resume your previous activity Non-emergency contact: Primary Care Provider Call non-emergency contact if: you have any medication questions and your symptoms worsen Follow-up/Referrals: Tariq Herndon MD [Primary Care Provider] - 04/01/21 11:20 am (Date & Time 04/01/2021 11:20 AM Provider Tariq Herndon MD Department [facility] ) Diet: Carb Consistent or DM2 Addtl Attending Provider Instructions: Please take all medications as instructed on discharge list below. You will need to follow closely with the [facility] clinic through [facility] who will be in contact with you early next week for the initial visit. They will be helping you to manage your blood sugars. Additionally, you will need to follow- up with your primary care doctor within 1 week of discharge at the time and date above. This will be to ensure that you are still doing well on current therapies and not having side effects. Additionally, annual screening needs to be performed in diabetics including retinal and foot screening as well as checking urine for protein. Your liver function enzymes were elevated in the setting of fatty liver. This improved with treatment while you are hospitalized but needs to be checked as outpatient to ensure this has returned to normal. This lab value can be ordered through your primary care doctor. As discussed it is very important to modify your diet and lifestyle with a goal of decreasing percent body fat and increas ing lean muscle mass. As a review, your goal hemoglobin A1c is less than 6.5. This should be checked every 3 to 6 months until you achieve that goal. It was a pleasure taking care of you! Please call if you have any questions or problems. You can reach a [facility] hospitalist on duty at [facility] 24 hours a day by calling [phone]. Take care of yourself. Rand Lee, DO [facility] Hospitalist Pending Studies at Discharge: No Stand-Alone Forms: My [facility] Medications and DC Order Prescriptions: New metformin 500 mg Tablet Extended Release 24 Hr 500 mg PO QDD Qty: 30 RF: 0 (DME) OneTouch Verio test strips Strip See Rx Instructions .Route Qty: 100 RF: 0 (DME) lancets [OneTouch Delica Lancets] 33 gauge misc See Rx Instructions .Route Qty: 100 RF: 0 Lantus Solostar U-100 Insulin 100 unit/mL (3 mL) insulin pen 50 unit subcut DAILY Qty: 15 RF: 0 (DME) pen needle, diabetic [Pen Needle] 32 gauge x 5/32" needle See Rx Instructions .Route Qty: 50 RF: 0 Continued levothyroxine 50 mcg tablet 50 mcg PO DAILYBB RF: 0 lisinopril-hydrochlorothiazide 10-12.5 mg tablet 1 tab PO DAILY RF: 0 albuterol sulfate 90 mcg/actuation HFA aerosol inhaler 2 puff INHALATION Q4H PRN (Reason: Shortness Of Breath Or Wheezing) RF: 0 pantoprazole 40 mg tablet,delayed release (DR/EC) 40 mg PO DAILY RF: 0 Discharge Orders: Discharge Order (Routine); Ordered 03/29/21 Ordered By: Rand Xiong/Other Patient Handouts: Managing Type 2 Diabetes Admission Data Admit Date/Time: 03/26/21 19:14 Attending Provider: Rand Lee Admit Provider: Rand Lee Primary Care Provider: Tariq Herndon Other Interventions: Discharge Summary Assessment (RN) Last Done: 03/29/21 13:24
[2021-03-29 12:12] LABS: Albumin Level 3.2 gm/dl (3.4-5.0); BUN Creatinine Ratio 12.3 (10-20); Calcium 8.3 mg/dl (8.5-10.1); Creatinine Clr Calc Pharmacy 103.4 ml/min; Est GFR (African American) 107.3 ml/min; Est GFR (Non-African American) 92.6 ml/min; Potassium 3.4 mmol/L (3.5-5.1)
[2021-03-29 12:15] LABS: Albumin Globulin Ratio 0.8 (0.9-2); Bilirubin,Total 0.5 mg/dl (0.2-1); Globulin 4.2 gm/dl (2.5-4.0); Total Protein 7.4 gm/dl (6.4-8.2)
[2021-03-29] MEDS: ENOXAPARIN INJ 40 MG/0.4 ML SYR SQ SCH (12:25)
== END 2021-03-29 15:35 | disposition home or self-care (01) | DRG 638 ==
LOC: ED 15:46 → 2S 19:14 → 3N 03-28 18:03
DX: N17.9 Acute kidney failure, unspecified; Z86.16 Personal history of COVID-19; E11.00 Type 2 diabetes mellitus with hyperosmolarity without nonketotic hyperglycemic-hyperosmolar coma (NKHHC); Z79.899 Other long term (current) drug therapy; J45.909 Unspecified asthma, uncomplicated; E03.9 Hypothyroidism, unspecified; Z79.890 Hormone replacement therapy; Z88.1 Allergy status to other antibiotic agents; I10 Essential (primary) hypertension; Z87.11 Personal history of peptic ulcer disease; K76.0 Fatty (change of) liver, not elsewhere classified